=== PATIENT | male | born 1935 | race Caucasian/White ===

== ENCOUNTER 2018-09-11 12:30 | Inpatient (IN) | payer MEDICARE, BC ==
[2018-09-11] MEDS ORDERED: NS 0.9% 1000 ML** 1,000 ML IV ONE ×2 (13:05→16:12)
--- OUTSIDE RECORDS SUMMARY | 2018-09-11 13:09 | XMS REPORT | Continuity of Care Document ---
:1935 External Reference #:[id number] Author Name Chaitanya Desai MD Address [address] [facility] [place] [address] Care Team Providers Name Role Phone Chaitanya Desai MD Care Team Information Dupligraph Operator Unavailable Chaitanya Desai MD Primary Care Physician Unavailable Payers Date Identification Numbers Payment Provider Subscriber Effective: 2004 Policy Number: [id number] Medicare [place] Deniz Ellsworth JR PayID: [id number] [address] [place] [address] Effective: 2016 Policy Number: Out Of Area [facility] Deniz Ellsworth JR [id number] Group Number: [id number] [address] [address] Group Name: [facility] Supp Plan J ESTEE Zamorano [id number] PayID: [id number] Advance Directives Description No Information Available Problems Description No Information Family History Date Family Member(s) Observation Comments : (age 77 Years) Father due to Alcoholism : (age 96 Years) Mother due to Natural Causes : (age 81 Years) First Sister due to Alzheimer's His Twin Disease Social History Type Date Description Comments Sex Unknown Tobacco Use Start: Unknown Nonsmoker Smoking Status Reviewed: 09/11/18 Nonsmoker Allergies, Adverse Reactions, Alerts Date Description Reaction Status Severity Comments 03/26/2018 Drixoral Urticaria, Active Moderate 03/26/2018 NKDA Inactive Medications Medication Date Status Form Strength Qnty SIG Indications Ordering Provider Hospital Bed 09/11/ Active use for G20 Chaitanya William Semi Electric 2019 positioning Minna MD from supine Dx: parkinson's g20 Carbidopa-Lev / Active Tablets 25-250mg 360tab 1 by mouth Chaitanya William odopa 0000 s four times a Lloyd fisher MD Carbidopa-Lev / Active Tablets 50-200mg 90tabs 1 @ bedtime Chaitanya William odopa ER 0000 ER MD Lloyd Amantadine / Active Tablets 100mg 180tab take 1 tab by Chaitanya William HCL 0000 s mouth two Lloyd times daily MD Amlodipine / Active Tablets 5mg 90tabs 1 by mouth Chaitanya William Besylate 0000 every day MD Lloyd Vitamin B12 / Active Tablets 500mcg 1 by mouth Unknown 0000 ER every day Tylenol 200MG / Active 1-2 as needed Unknown 0000 Immunizations CPT Code Status Date Vaccine Lot # [id number] Given 04/19/2018 High-Dose, Influenza Virus Vacccine-fluzone 65 and [id number] older Vital Signs Date Vital Result Comment 09/11/2018 11:11am BP Systolic 148 mmHg BP Diastolic 70 mmHg Heart Rate 92 /min Body Temperature 101.1 F Respiratory Rate 16 /min Weight 160.00 lb 07/21/2018 1:09pm BP Systolic 130 mmHg BP Diastolic 68 mmHg Heart Rate 70 /min Respiratory Rate 16 /min 06/17/2018 10:13am BP Systolic 142 mmHg BP Diastolic 80 mmHg Heart Rate 78 /min Body Temperature 98.6 F Height 68 inches 5'8" Weight 163.00 lb BMI (Body Mass Index) 24.8 kg/m2 05/12/2018 1:39pm BP Systolic 140 mmHg BP Diastolic 70 mmHg Heart Rate 78 /min Body Temperature 97.9 F Respiratory Rate 18 /min Weight 163.50 lb 03/26/2018 1:42pm BP Systolic 114 mmHg BP Diastolic 64 mmHg Heart Rate 66 /min Body Temperature 98.6 F Height 68 inches 5'8" Weight 159.00 lb BMI (Body Mass Index) 24.2 kg/m2 Results Description No Information Available Procedures Date Code Description Status 06/17/2018 46412 Remove Impacted Cerumen Completed 03/26/2018 37022180 Colonoscopy Completed Encounters Type Date Location Provider Dx Diagnosis Office Visit 07/21/2018 [facility] Office Chaitanya William G20 Parkinson's disease 1:20p MD Lloyd I10 Essential (primary) hypertension Office Visit 06/17/2018 10:10a [facility] Office Chaitanya Shirley H61.22 Impacted Valentina [place], left ear Office Visit 05/12/2018 1:40p [facility] Office Chaitanya William R60.0 Localized edema MD Lloyd G20 Parkinson's disease Office Visit 03/26/2018 2:00p Main Office Chaitanya William G2Aliya Parkinson's disease MD Lloyd I10 Essential (primary) hypertension Plan of Treatment Future Appointment(s):10/22/2018 12:50 pm - Chaitanya Desai MD at Main [id number]/11/2018 - Chaitanya Desai MDK29.01 Acute gastritis with [id number] Parkinson's diseaseNew Medication:Hospital Bed Semi Electric - use for positioning and rising from supine Dx: parkinson's [id number]:~B_~U_ Medication Management~b_~u_ Patient Understands medications he's taking? Yes No Are there Barriers to Adherence? Yes No Has the patient been asked about herbal supplements and therapies, and OTC meds? Yes No
[2018-09-11] MEDS ORDERED: Ondansetron INJ* 2 MG/ML VIAL IV ONE (13:25)
--- NOTE | 2018-09-11 13:39 | ED ---
Abdominal Pain/Male - HPI Summary HPI Summary: Patient is an 83-year-old male who presents emergency department for coffee ground emesis, diffuse abdominal pain and distention 2 days. Patient has a history of Parkinson's disease and resides with his daughter who is present. She states he started feeling unwell several days ago which then progressed to vomiting last night which continued today. He was seen by PCP and office today who did a rectal exam and found occult blood. Patient also was noted to have a low-grade fever at PCP. Patient denies chest pain, shortness of breath, cough, urinary symptoms. He does note constipation over the last few days. Denies abdominal surgeries or history of gastric ulcers. Symptoms are moderate in severity. No current modifying factors. - History of Current Complaint Chief Complaint: EDGIBleed Stated Complaint: ABD PAIN Time Seen by Provider: 09/11/18 13:05 Hx Obtained From: Patient Pain Intensity: 7 - Allergies/Home Medications Allergies/Adverse Reactions: Allergies Allergy/AdvReac Type Severity Reaction Status Date / Time brompheniramine Allergy See Comment Verified 09/11/18 12:42 [From Drixoral] dexbrompheniramine Allergy See Comment Verified 09/11/18 12:42 [From Drixoral] pseudoephedrine Allergy See Comment Verified 09/11/18 12:42 [From Drixoral] Home Medications: Home Medications Amantadine CAP* [Symmetrel CAP*] 100 mg PO DAILY 09/11/18 [History Confirmed ] Carbidopa/Levodop CR 50/200(*) [Sinemet CR 50/200(*)] 1 tab PO DAILY 09/11/18 [ History Confirmed 09/11/18] Carbidopa/Levodopa [Carbidopa-Levodopa 25-250 Tab] 1 each PO TID 09/11/18 [ History Confirmed 09/11/18] Cyanocobalamin TAB* [Vitamin B12 TAB*] 500 mcg PO DAILY 09/11/18 [History Confirmed 09/11/18] Ibuprofen TAB* [Motrin TAB* 400 MG] 400 mg PO Q6H PRN 09/11/18 [History Confirmed 09/11/18] amLODIPine TAB* [Norvasc 5 mg TAB*] 5 mg PO DAILY 09/11/18 [History Confirmed ] PMH/Surg Hx/FS Hx/Imm Hx Previously Healthy: Yes Infectious Disease History: No Infectious Disease History: Denies: Traveled Outside the [place] in Last 30 Days - Family History Known Family History: Positive: Non-Contributory - Social History Occupation: Retired Lives: With Family Alcohol Use: None Substance Use Type: Reports: None Smoking Status (MU): Never Smoked Tobacco Review of Systems Positive: Fever Eyes: Negative ENT: Negative Cardiovascular: Negative Negative: Chest Pain Negative: Shortness Of Breath Positive: Abdominal Pain, Vomiting, Nausea. Negative: Diarrhea Genitourinary: Negative Musculoskeletal: Negative Skin: Negative Neurological: Negative All Other Systems Reviewed And Are Negative: Yes Physical Exam Triage Information Reviewed: Yes Vital Signs On Initial Exam: Initial Vitals Temp Pulse Resp BP Pulse Ox 100.1 F 98 18 142/78 93 09/11/18 12:38 09/11/18 12:38 09/11/18 12:38 09/11/18 12:38 09/11/18 12:38 Vital Signs Reviewed: Yes Appearance: Positive: Pain Distress - Pt. sitting up in bed, appears uncomfortable but nontoxic. Daughter present. Skin: Positive: Warm, Dry Head/Face: Positive: Normal Head/Face Inspection Eyes: Positive: Normal, EOMI Neck: Positive: Supple. Negative: Nuchal Rigidity Respiratory/Lung Sounds: Positive: Clear to Auscultation, Breath Sounds Present Cardiovascular: Positive: Normal, RRR Abdomen Description: Positive: Other: - Distended with mild diffuse tenderness. Hypoactive bowel sounds. Musculoskeletal: Negative: Edema Left, Edema Right Neurological: Positive: Normal, CN Intact II-III Psychiatric: Positive: Affect/Mood Appropriate Diagnostics - Vital Signs Vital Signs Temp Pulse Resp BP Pulse Ox 09/11/18 12:38 100.1 F 98 18 142/78 93 - Laboratory Result Diagrams: 09/11/18 13:22 09/11/18 13:22 Lab Statement: Any lab studies that have been ordered have been reviewed, and results considered in the medical decision making process. Abdominal Pain Male Course/Dx - Course Course Of Treatment: Patient presenting with abdominal distention, pain and vomiting. Rectal temperature 101.8F, heart rate mildly elevated in the high 90s. Oxygen saturation 93% room air which is low normal. On exam patient has no gross bleeding in stool is brown, stool is negative for occult blood. EKG done at 1332 shows a sinus rhythm of 94 bpm, normal axis, no ST elevation or depression. CXR negative for acute findings per radiology. U/A shows ketones but negative for infection. CBC shows a leukopenia of 3.3. CT scan is negative for acute findings per radiology. Unclear of orgin of fever. Negative flu swab at PCP today. Hospitalist consulted for admission. - Diagnoses Provider Diagnoses: Fever of unknown origin, Leukopenia Discharge - Sign-Out/Discharge Documenting (check all that apply): Patient Departure Patient Received Moderate/Deep Sedation with Procedure: No - Discharge Plan Condition: Improved Disposition: ADMITTED TO [facility] Referrals: Chaitanya Desai MD [Primary Care Provider] - - Billing Disposition and Condition Condition: IMPROVED Disposition: Admitted to [facility]
[2018-09-11 13:40] LABS: ABS Basophils 0 10^3/ul (0-0.2); ABS Eosinophils 0 10^3/ul (0-0.6); ABS Lymphocytes 0.3 10^3/ul (1.0-4.8); ABS Monocytes 0.6 10^3/ul (0-0.8); ABS Neutrophils 2.4 10^3/ul (1.5-7.7); ABS Nucleated RBC 0 10^3/ul; Eosinophil % 0 %; Hematocrit 44 % (42-52); Hemoglobin 14.7 g/dl (14.0-18.0); Lymphocyte % 8.5 %; Mean Corpuscular HGB Conc 34 g/dl (31-36); Mean Corpuscular Hemoglobin 32 pg (27-31); Mean Corpuscular Volume 95 fL (80-94); Mean Platelet Volume 8.4 fL (7.4-10.4); Nucleated Red Blood Cells % 0.1; Platelet Count 155 10^3/ul (150-450); Red Blood Count 4.62 10^6/ul (4.00-5.40); Red Cell Distribution Width 13 % (10.5-15); White Blood Count 3.3 10^3/ul (3.5-10.8)
[2018-09-11 13:57] LABS: Activated Partial Thrombo Time 28.4 seconds (26.0-36.3); INR 1.06 (0.77-1.02)
[2018-09-11 14:02] LABS: Albumin 3.8 g/dL (3.2-5.2); Albumin/Globulin Ratio 1.6 (1-3); BUN/Creatinine Ratio 33.9 (8-20); Calcium 8.7 mg/dL (8.6-10.3); EGFR African American 75.9 (>60); EGFR Non-African American 62.8 (>60); Globulin 2.4 g/dL (2-4); Potassium 4.3 mmol/L (3.5-5.0); Total Bilirubin 1.7 mg/dL (0.2-1.0); Total Protein 6.2 g/dL (6.4-8.9)
[2018-09-11 15:43] LABS: Troponin I 0.01 ng/mL (<0.04)
[2018-09-11 16:19] LABS: Urine Appearance Cloudy; Urine Bilirubin Negative (Negative); Urine Blood Negative (Negative); Urine Color Yellow; Urine Glucose Negative (Negative); Urine Ketones 1+ (Negative); Urine Nitrite Negative (Negative); Urine Protein Negative (Negative); Urine Specific Gravity 1.024 (1.010-1.030); Urine Urobilinogen Negative (Negative)
[2018-09-11 16:37] LABS: C Reactive Protein 69.8 mg/L (<8.01)
[2018-09-11] MEDS ORDERED: Acetaminophen TAB* 325 MG PO PRN (17:30)
[2018-09-11] MEDS ORDERED: Ondansetron INJ* 2 MG/ML VIAL IV PRN (17:30)
[2018-09-11] MEDS ORDERED: Piperacillin/Tazobac ADVAN(*) 3.375 GM in NS 0.9% 100 ML* 100 ML IVPB ONE (17:48)
[2018-09-11] MEDS ORDERED: Senna TAB PO PRN (17:50)
[2018-09-11] MEDS ORDERED: Zosyn per Pharmacy* NOTE FOLLOW UP SCH (18:00)
--- NOTE | 2018-09-11 19:41 | HP ---
CC: Dr. Chaitanya Desai * ADMISSION HISTORY AND PHYSICAL: DATE OF ADMISSION: 09/11/18 PRIMARY CARE PROVIDER: Dr. Chaitanya Desai. MY ATTENDING WHILE IN THE HOSPITAL: Dr. Dereck Pelayo.* (DICTATED BY NIKHIL ROTHMAN) CHIEF COMPLAINT: Abdominal pain, nausea, vomiting. HISTORY OF PRESENT ILLNESS: Mr. Ellsworth is an 83-year-old male with past medical history significant for Parkinson disease and prostate cancer, status post resection, who presents to the emergency department after on Saturday he started with sudden onset abdominal distention, increased belching and abdominal pain, which was relieved somewhat with Gas-X, but was accompanied by significant reflux. The patient then improved, was able to tolerate a bland diet , but was unable to tolerate his Parkinson meds. The patient then began throwing up at approximately 10 p.m. on 09/10/18 with significantly associated nausea and abdominal pain. The patient had coffee-ground emesis, but no blood. The patient has not had a bowel movement since Saturday, but has been passing gas. The patient this morning vomited again and went to his primary care doctor and was found to have occult blood in his stool. The patient's most recent colonoscopy was in 1995 and looked normal. The patient had an endoscopy in 2009, which had no issues. The patient in the emergency department was found to be tachycardic and febrile. The patient was given fluids and Zofran and was able to tolerate oral liquids. The patient has never had an episode like this before. The patient has never had abdominal surgery. The patient describes the pain as severe, intermittent and aching in the center of his abdomen. The patient feels intermittently as if he has to have a bowel movement. The patient has not been drinking very much and his urine has become very dark colored. The patient has no pain with urination. The patient has not been losing weight recently, in fact the patient has been gaining weight due to improved nutrition from living with his daughter instead of living by himself. The patient has not been able to have consistent dosing of his Parkinson medications for several days and is feeling very weak and tremulous with regard to this. Due to the concern for fevers, tachycardia and abdominal pain, we are asked to evaluate the patient for admission in the hospital. PAST MEDICAL HISTORY: Parkinson disease, prostate cancer, hypertension. PAST SURGICAL HISTORY: Prostate resection, carpal tunnel release, right rotator cuff repair, multiple trigger finger releases. MEDICATIONS: 1. Amlodipine 5 mg p.o. daily. 2. Carbidopa/levodopa 5/250 one tab p.o. t.i.d. 3. Carbidopa/levodopa ER 50/200 one tab p.o. nightly. 4. Amantadine 100 mg p.o. b.i.d. 5. Vitamin B12 500 mcg p.o. daily. 6. Ibuprofen as needed. ALLERGIES: BROMPHENIRAMINE, DEXBROMPHENIRAMINE, PSEUDOEPHEDRINE. FAMILY HISTORY: The patient's father of cirrhosis due to alcoholism. The patient's mother of old age at age 97. The patient has a sister who of complications of Alzheimer's and a sister who has mild dementia, but is otherwise well. SOCIAL HISTORY: The patient has never smoked, drank, or used illicit drugs. 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 The patient is and has 1 child. The patient's also has Parkinson's disease and lives with him. The patient 's surrogate decision maker will be his daughter, Yanelis Burns. REVIEW OF SYSTEMS: A 14-point review of systems was reviewed and is negative except as above in the HPI. PHYSICAL EXAMINATION GENERAL: The patient is an 83-year-old male with mask-like facies, who appears stated age and sitting comfortably in the bed, in no acute distress. HEENT: Head: Normocephalic, atraumatic. Sclerae anicteric. No conjunctival injection. Nasal mucosa moist. Oral mucosa moist. No pharyngeal erythema, discharge, or exudate. NECK: Supple, nontender. No lymphadenopathy. No carotid bruits auscultated. No JVD. RESPIRATORY: Clear to auscultation bilaterally. No wheezes, rales, or rhonchi. Good air exchange bilaterally. CARDIAC: Regular rate and rhythm. No clicks, murmurs, gallops, or rubs. Pulses are 2+ in the bilateral dorsalis pedis, posterior tibialis, and radial areas. ABDOMEN: Soft, tender to palpation in the middle of the stomach without rebound or guarding. No hepatosplenomegaly. No abdominal bruits auscultated. Normoactive bowel sounds. GENITOURINARY: No suprapubic or CVA tenderness. NEURO: Cranial nerves II through XII intact. No focal deficits. Alert and oriented x3. Slight tremor, bradykinesia. PSYCHIATRIC: Pleasant and cooperative. SKIN: Clean, dry, and intact. No rash. DIAGNOSTIC STUDIES/LAB DATA: White blood cell count 3.3, hemoglobin 14.7, platelet count 155. INR 1.06, APTT 28.4. Sodium 136, potassium 4.3, chloride 104, carbon dioxide 24, anion gap 8, BUN 38, creatinine 1.12, glucose 120, calcium 8.7. Bilirubin 1.7, AST 25, ALT 20, alkaline phosphatase 81. Troponin I 0.01. CRP 69.0. Protein 6.2, albumin 3.9, globulin 2.4. Urine shows 1+ ketones, cloudy, negative, otherwise benign. Studies: Chest x-ray read as no active cardiopulmonary disease. Electrocardiogram read as normal sinus rhythm, normal axis, rate of 94, QTc of 414. No hypertrophy or enlargement. Normal R-wave progression. No PACs. No other significant abnormalities. None for comparison. Abdomen and pelvis CT from 09/11/18 read as atherosclerosis, diverticulosis, cholelithiasis. No acute pathology in the visualized abdomen or pelvis. There is large amount of stool noted in the colon. ASSESSMENT AND PLAN/IMPRESSION: Mr. Ellsworth is an 83-year-old male with past medical history significant for Parkinson disease and prostate cancer, who presents to the emergency department with 3 days of intermittent abdominal pain , distention with nausea and vomiting. The patient is febrile and will be admitted to the hospital for empiric antibiotics and close monitoring. 1. Abdominal pain, distention. The differential for the patient's abdominal pain, fever and diarrhea includes viral gastroenteritis, early diverticulitis not picked up on CT scan or other infectious etiology coupled with constipation. The patient will be admitted to the hospital, given fluids for his dehydration. The patient will have a soft diet to allow him to take his Parkinson medications with antiemetics as needed. The patient will have Zosyn for antibiotics. The patient received 1 L of fluids in the emergency department and will receive them ongoing at 100 mL an hour. The patient had good relief with Zofran, this will be continued. The patient will have laxatives with senna and docusate and be monitored for bowel movements and possible resolution of his symptoms. The patient has not had evidence of bowel obstruction on his exam nor his abdominal pain, though he will be monitored closely for signs of decompensation. Lactic acid is pending at this time. 2. Parkinson's disease. The patient has not been able to take his Parkinson medications for several days. We will continue the patient's home Parkinson regimen with Zofran and a soft diet in order help make it more palatable. 3. Hypertension. The patient is currently normotensive. Continue the patient' s amlodipine. 4. DVT prophylaxis: The patient is a moderate risk. The patient will have heparin subcu. 5. Code status: The patient would like to be a DNR. The patient does not have the original copy of his DNR with him. 6. FEN: The patient will have fluids and a soft diet as above. 7. Disposition: The patient is admitted inpatient in the hospital. Estimated length of stay 2 to 3 days. TIME SPENT: Approximately 60 minutes was spent on the admission of this patient , 30 of which was spent [id number] with the patient obtaining history and physical and discussing treatment plan. Plan was discussed with my attending, Dr. Dereck Pelayo, and he is in agreement. NIKHIL ROTHMAN [id number]/[facility] #: [id number] MARIA ANTONIA
[2018-09-11] MEDS: NS 0.9% 1000 ML** 1,000 ML IV SCH (20:13)
[2018-09-11] MEDS: Docusate CAP* 100 MG PO SCH (22:07)
[2018-09-11] MEDS: Heparin VIAL(*) 5000 UNITS/ML VIAL (FIVE THOUSAND) SUBCUT SCH (22:12)
[2018-09-11] MEDS: Carbidopa/Levodop 25/250MG TAB(*) PO SCH (22:49)
[2018-09-11] MEDS: ZOSYN 3.375 GM Q8H per EXTENDED INFUSION IVPB SCH ×2 (22:51)
[2018-09-12] MEDS: Heparin VIAL(*) 5000 UNITS/ML VIAL (FIVE THOUSAND) SUBCUT SCH ×3 (06:03→21:59)
[2018-09-12] MEDS: ZOSYN 3.375 GM Q8H per EXTENDED INFUSION IVPB SCH ×6 (06:04→22:00)
[2018-09-12 07:32] LABS: Hematocrit 39 % (42-52); Hemoglobin 12.7 g/dl (14.0-18.0); Mean Corpuscular HGB Conc 33 g/dl (31-36); Mean Corpuscular Hemoglobin 31 pg (27-31); Mean Corpuscular Volume 96 fL (80-94); Mean Platelet Volume 8.1 fL (7.4-10.4); Platelet Count 136 10^3/ul (150-450); Red Blood Count 4.06 10^6/ul (4.00-5.40); Red Cell Distribution Width 13 % (10.5-15); White Blood Count 3.3 10^3/ul (3.5-10.8)
[2018-09-12 07:49] LABS: Albumin/Globulin Ratio 1.4 (1-3); BUN/Creatinine Ratio 26.7 (8-20); Calcium 7.8 mg/dL (8.6-10.3); EGFR African American 81.8 (>60); EGFR Non-African American 67.6 (>60); Globulin 2.1 g/dL (2-4); Magnesium 1.5 mg/dL (1.9-2.7); Potassium 3.9 mmol/L (3.5-5.0); Total Bilirubin 1.1 mg/dL (0.2-1.0); Total Protein 5.1 g/dL (6.4-8.9)
[2018-09-12] MEDS ORDERED: Magnesium Sulf 4 GM/100 ML IV* 4,000 MG/100 ML BAG IVPB ONE (08:25)
[2018-09-12] MEDS ORDERED: Calcium Gluconate INJ* 1 GM in NS 0.9% 50 ML* 50 ML IVPB ONE (08:25)
[2018-09-12 08:32] LABS: ABS Basophils 0 10^3/ul (0-0.2); ABS Eosinophils 0.1 10^3/ul (0-0.6); ABS Lymphocytes 0.6 10^3/ul (1.0-4.8); ABS Monocytes 0.8 10^3/ul (0-0.8); ABS Neutrophils 1.8 10^3/ul (1.5-7.7)
[2018-09-12 08:35] LABS: Lymphocytes % 24 %; Monocytes % 13 %; Neutrophil % 56 %; Variant Lymph % 4 % (0-6)
[2018-09-12 08:36] LABS: ABS Neutrophils 1.8 10^3/ul (1.5-7.7)
[2018-09-12 08:37] LABS: ABS Eosinophils 0.1 10^3/ul (0-0.6)
[2018-09-12] MEDS ORDERED: Amantadine CAP* 100 MG PO SCH (09:00)
[2018-09-12] MEDS: amLODIPine TAB* 5 MG PO SCH (09:00)
[2018-09-12] MEDS ORDERED: Carbidopa/Levodop CR 50/200(*) TAB.CR PO SCH (09:00)
[2018-09-12] MEDS: Cyanocobalamin TAB* 500 MCG PO SCH (10:10)
[2018-09-12] MEDS: Docusate CAP* 100 MG PO SCH ×2 (10:10→22:00)
[2018-09-12] MEDS: Carbidopa/Levodop 25/250MG TAB(*) PO SCH ×3 (11:51→21:59)
--- NOTE | 2018-09-12 13:39 | PN ---
Subjective Date of Service: 09/12/18 Interval History: Pt seen and examined. Meds and labs reviewed. CC: Pain under left breast area that improves w/movement and worsens w/drinking liquids. ROS: Denied MALDONADO/dizziness, F/C, N/V, CP, SOB, increased cough, sputum production , abd pain, diarrhea, constipation, dysuria, myalgias, arthralgias, throat pain , and new skin lesions. The rest of the 14 point ROS are unremarkable. PHYSICAL EXAM: GEN APPEARANCE: Awake, not in acute distress, Ox3 HEENT: NC/AT, PERRLA, moist oral mucosa, (-) throat erythema NECK: Soft, supple, (-) cervical LAD, (-)JVD HEART: S1S2 WNL, RRR, No MRG CHEST: CTA, BL, GAE, No W/R/R ABD: Soft, ND/NT, NABS 4x Q EXT: No C/C/E SKIN: Warm to touch PSYCH: No active psychosis, hallucinations, depression, SI/HI Objective Active Medications: Acetaminophen (Tylenol Tab*) 650 mg PO Q6H PRN PRN Reason: FEVER/PAIN Amantadine HCl (Symmetrel Cap*) 100 mg PO DAILY [facility] Last Admin: 09/12/18 10:11 Dose: 100 mg Amlodipine Besylate (Norvasc Tab*) 5 mg PO DAILY [facility] Last Admin: 09/12/18 09:00 Dose: Not Given Carbidopa/Levodopa (Sinemet 25/250 Tab(*)) 1 tab PO 1200,1700,2200 KAYLA Last Admin: 09/12/18 11:51 Dose: 1 tab Carbidopa/Levodopa (Sinemet Cr 50/200(*)) 1 tab.cr PO DAILY [facility] Last Admin: 09/12/18 10:11 Dose: 1 tab.cr Cyanocobalamin (Vitamin B12 Tab*) 500 mcg PO DAILY [facility] Last Admin: 09/12/18 10:10 Dose: 500 mcg Docusate Sodium (Colace Cap*) 200 mg PO BID [facility] Last Admin: 09/12/18 10:10 Dose: 200 mg Heparin Sodium (Porcine) (Heparin Vial(*)) 5,000 units SUBCUT Q12H [facility] Last Admin: 09/12/18 10:12 Dose: 5,000 units Sodium Chloride (Ns 0.9% 1000 Ml) 1,000 mls @ 100 mls/hr IV PER RATE [facility] Last Admin: 09/11/18 20:13 Dose: 100 mls/hr Piperacillin Sod/Tazobactam (Sod 3.375 gm/ Sodium Chloride) 100 mls @ 25 mls/ hr IVPB Q8H [facility] Last Admin: 09/12/18 06:04 Dose: 25 mls/hr Ondansetron HCl (Zofran Inj*) 4 mg IV Q6H PRN PRN Reason: NAUSEA Pharmacy Consult (Zosyn Per Pharmacy*) 1 note FOLLOW UP .ZOSYN PER PHARMACY [facility] Senna (Senokot Tab*) 1 tab PO DAILY PRN PRN Reason: CONSTIPATION Vital Signs - 8 hr 09/12/18 09/12/18 09/12/18 06:09 08:00 11:41 Temperature 98.4 F 97.5 F Pulse Rate 66 68 Respiratory 16 16 18 Rate Blood Pressure 102/54 115/58 (mmHg) O2 Sat by Pulse 92 95 Oximetry Oxygen Devices in Use Now: None Result Diagrams: 09/12/18 07:18 09/12/18 07:18 Microbiology and Other Data: Microbiology 09/11/18 13:45 Stool Occult Blood (CARLITOS) - Final Stool Assess/Plan/Problems-Billing Assessment: - Patient Problems (1) Chest pain Current Visit: Yes Status: Acute Code(s): R07.9 - CHEST PAIN, UNSPECIFIED SNOMED Code(s): 37120956 Comment: -Left sided; located in the apex; likely musculoskeletal vs GERD on description and unlikely cardiac -Continue to trend troponins (2) AGE (acute gastroenteritis) Current Visit: Yes Status: Acute Code(s): K52.9 - NONINFECTIVE GASTROENTERITIS AND COLITIS, UNSPECIFIED SNOMED Code(s): 43041152 Comment: -Continue Zosyn for now although chances of enteroinvasive organisms is low with absence of occult blood -If rest of cultures remain negative along with clinical improvement in 1-2 days , consider D/C Zosyn -Continue IVF support (3) Parkinson disease Current Visit: Yes Status: Acute Code(s): G20 - PARKINSON'S DISEASE SNOMED Code(s): 60020851 Comment: -Continue Carbidopa/Levodopa (4) HTN (hypertension) Current Visit: Yes Status: Acute Code(s): I10 - ESSENTIAL (PRIMARY) HYPERTENSION SNOMED Code(s): 47091954 Comment: -Well-controlled -Continue Amlodipine (5) DVT prophylaxis Current Visit: Yes Status: Acute Code(s): BQP7001 - SNOMED Code(s): 841071600 Comment: -Changed Heparin SQ to q12H Status and Disposition: -Appreciate PT input; continue PT and reassessment of needs
[2018-09-12] MEDS: NS 0.9% 1000 ML** 1,000 ML IV SCH ×2 (14:46→16:51)
[2018-09-12] MEDS ORDERED: Nitroglycerin TAB 0.4 MG* 0.4 MG TAB SL PRN (15:09)
[2018-09-12 16:00] LABS: CKMB ng/mL 7.4 ng/mL (0.6-6.3)
[2018-09-12] MEDS: Amantadine CAP* 100 MG PO SCH (16:52)
[2018-09-12] MEDS: Aspirin EC TAB* 325 MG PO SCH (16:52)
--- NOTE | 2018-09-12 18:34 | ECHO ---
Patient: CHERYL KENNEDY [facility] Rec#: [id number] : 1935 Date: 09/12/2018 Age: 83y Height: 175 cm / 68.9 in Weight: 78 kg / 171.9 lbs Sex: M BSA: 1.94 Room#: [facility] Admit Date#: 09/11/2018 Type: Inpatient Referring: Vic Alvarado Reading: Daisy Licea MD Pharmacy Clinical Coordinator: Fior Asher RDCS CC: Chaitanya Bond Transthoracic Echocardiogram Indication: CP//Sepsis BP: 115/58 HR: 64 Rhythm: NSR Findings History: Parkinson's,prostate cancer,HTN. Technical Comments: The study quality is good. This is a limited study for wall motion. Completed at 1806. Left Ventricle: The estimated ejection fraction is 50-55%. Conclusions Limited study. Grossly normal left ventricular wall motion and contractility, visually estimated EF 55 %. Mildly D shaped LV at the base on short axis view. Right ventricle shows normal contractility at the base on parasternal and 4 chamber views, apex appears relatively hypokinetic on apicla views. Pericardium appears normal. Trileaflet aortic valve, mildly sclerotic with normal excursion. Mitral valve leaflets mildly sclerotic with a mild decrease in excursion. Tricuspid valve leaflets with normal excursion. No prior study to compare.
[2018-09-12] MEDS: Carbidopa/Levodop CR 50/200(*) TAB.CR PO SCH (22:00)
[2018-09-13] MEDS: NS 0.9% 1000 ML** 1,000 ML IV SCH ×2 (03:05→13:30)
[2018-09-13] MEDS: ZOSYN 3.375 GM Q8H per EXTENDED INFUSION IVPB SCH ×6 (05:58→21:56)
[2018-09-13 07:16] LABS: Hematocrit 37 % (42-52); Hemoglobin 12.4 g/dl (14.0-18.0); Mean Corpuscular HGB Conc 34 g/dl (31-36); Mean Corpuscular Hemoglobin 32 pg (27-31); Mean Corpuscular Volume 94 fL (80-94); Mean Platelet Volume 8.5 fL (7.4-10.4); Platelet Count 137 10^3/ul (150-450); Red Blood Count 3.88 10^6/ul (4.00-5.40); Red Cell Distribution Width 13 % (10.5-15); White Blood Count 3.1 10^3/ul (3.5-10.8)
[2018-09-13 07:29] LABS: Albumin/Globulin Ratio 1.5 (1-3); BUN/Creatinine Ratio 21.5 (8-20); EGFR African American 94.1 (>60); EGFR Non-African American 77.8 (>60); Phosphorus 2.5 mg/dL (2.5-5.0); Potassium 3.8 mmol/L (3.5-5.0); Total Bilirubin 0.7 mg/dL (0.2-1.0)
[2018-09-13 08:37] LABS: Troponin I 0.22 ng/mL (<0.04)
[2018-09-13] MEDS: Aspirin EC TAB* 325 MG PO SCH (08:53)
[2018-09-13] MEDS: Cyanocobalamin TAB* 500 MCG PO SCH (08:53)
[2018-09-13] MEDS: Amantadine CAP* 100 MG PO SCH ×2 (08:53→16:52)
[2018-09-13] MEDS: Heparin VIAL(*) 5000 UNITS/ML VIAL (FIVE THOUSAND) SUBCUT SCH ×2 (08:54→21:46)
[2018-09-13] MEDS: amLODIPine TAB* 5 MG PO SCH (08:54)
[2018-09-13] MEDS: Docusate CAP* 100 MG PO SCH ×2 (08:54→21:45)
[2018-09-13] MEDS: Carbidopa/Levodop 25/250MG TAB(*) PO SCH ×4 (08:56→21:45)
[2018-09-13] MEDS ORDERED: Aspirin TAB* 325 MG PO SCH (13:00)
[2018-09-13] MEDS: Atorvastatin* 80 MG TAB PO SCH (13:36)
--- NOTE | 2018-09-13 14:43 | CONSULT ---
Subjective Date of Service: 09/13/18 - CC: nausea, vomiting, distention of abdoman, gas. Elevated troponins. Interval History: 83 yo with no past cardiac history. PMHx HTN, PKSNs Stable health, had dinner then developed gas/distension. 1AM awoke to pee, N/V , this occured again 3 AM, then severe SS irritation lying down, Tums did not help and had to sit up. He did not wake up his family, let them know 6:30 AM when they awoke. Able to eat now. Denies GI or chest discomfort now. Denies any changes in medications prior to the event. Family History: Unchanged from Admission - Father of alchol, mother 97 yo, 2 sisters one a twin, no cardiac history. Social History: Unchanged from Admission - Retired from working with [employer], exposure to Asbestous and Berylium. Non smoker, no EtOH abuse. No recreation drug abuse. Widowede, lives with daughter and ZAIRE. Past Medical History: Unchanged from Admission - HTN, Parkinsons, uses a cane. Medications Active Medications: Acetaminophen (Tylenol Tab*) 650 mg PO Q6H PRN PRN Reason: FEVER/PAIN Amantadine HCl (Symmetrel Cap*) 100 mg PO 1700 [facility] Last Admin: 09/12/18 16:52 Dose: 100 mg Amantadine HCl (Symmetrel Cap*) 100 mg PO QAM [facility] Last Admin: 09/13/18 08:53 Dose: 100 mg Amlodipine Besylate (Norvasc Tab*) 5 mg PO DAILY [facility] Last Admin: 09/13/18 08:54 Dose: 5 mg Aspirin (Aspirin Tab*) 325 mg PO DAILY [facility] Last Admin: 09/13/18 13:36 Dose: 325 mg Atorvastatin Calcium (Lipitor*) 80 mg PO DAILY [facility] Last Admin: 09/13/18 13:36 Dose: 80 mg Carbidopa/Levodopa (Sinemet 25/250 Tab(*)) 1 tab PO QID [facility] Last Admin: 09/13/18 13:36 Dose: 1 tab Carbidopa/Levodopa (Sinemet Cr 50/200(*)) 1 tab.cr PO BEDTIME [facility] Last Admin: 09/12/18 22:00 Dose: 1 tab.cr Cyanocobalamin (Vitamin B12 Tab*) 500 mcg PO DAILY [facility] Last Admin: 09/13/18 08:53 Dose: 500 mcg Docusate Sodium (Colace Cap*) 200 mg PO BID [facility] Last Admin: 09/13/18 08:54 Dose: 200 mg Heparin Sodium (Porcine) (Heparin Vial(*)) 5,000 units SUBCUT Q12H [facility] Last Admin: 09/13/18 08:54 Dose: 5,000 units Sodium Chloride (Ns 0.9% 1000 Ml) 1,000 mls @ 100 mls/hr IV PER RATE [facility] Last Admin: 09/13/18 13:30 Dose: 100 mls/hr Piperacillin Sod/Tazobactam (Sod 3.375 gm/ Sodium Chloride) 100 mls @ 25 mls/ hr IVPB Q8H [facility] Last Admin: 09/13/18 13:36 Dose: 25 mls/hr Nitroglycerin (Nitroglycerin Tab 0.4 Mg*) 0.4 mg SL Q5M PRN PRN Reason: ANGINA Ondansetron HCl (Zofran Inj*) 4 mg IV Q6H PRN PRN Reason: NAUSEA Senna (Senokot Tab*) 1 tab PO DAILY PRN PRN Reason: CONSTIPATION Home Medications: Amantadine CAP* [Symmetrel CAP*] 100 mg PO DAILY 09/11/18 [History Confirmed ] Carbidopa/Levodop CR 50/200(*) [Sinemet CR 50/200(*)] 1 tab PO DAILY 09/11/18 [ History Confirmed 09/11/18] Carbidopa/Levodopa [Carbidopa-Levodopa 25-250 Tab] 1 each PO TID 09/11/18 [ History Confirmed 09/11/18] Cyanocobalamin TAB* [Vitamin B12 TAB*] 500 mcg PO DAILY 09/11/18 [History Confirmed 09/11/18] Ibuprofen TAB* [Motrin TAB* 400 MG] 400 mg PO Q6H PRN 09/11/18 [History Confirmed 09/11/18] amLODIPine TAB* [Norvasc 5 mg TAB*] 5 mg PO DAILY 09/11/18 [History Confirmed ] Review of Systems - Measurements Intake and Output: Intake and Output Last 24 Hours 09/11/18 09/12/18 09/13/18 09/14/18 04:59 04:59 04:59 04:59 Intake Total 6458 2244 2930 Output Total 950 1550 175 Balance 6299 334 9429 Weight 171 lb 6.4 oz Intake: IV Fluids 2714 1551 1978 NS (0.9%) 015 588 1666 calcium 100 magnesium 1059 IVPB 84 123 111 ABX - ZOSYN 84 23 111 magnesium 100 Oral 720 840 Output: Urine 950 1550 175 Other: Estimated Void Large # Bowel Movements 0 # Voids 1 - Review of Systems General Comments: Positive for diaphoresis with the N/V, had orthopnea as well. Emisis dark. No recent fevers, chills sweats. No recent change in bowel or bladder habits. No exertional symptoms prior. Distant history of gas with certain foods. Review of Systems Statement: All other review of systems negative, unless stated above. Objective Vital Signs: T MAX: 101.8 Temp Pulse Resp BP Pulse Ox 97.0 F 58 16 108/60 92 09/13/18 12:37 09/13/18 12:37 09/13/18 12:37 09/13/18 12:37 09/13/18 12:37 Vital Signs 09/12/18 09/12/18 09/12/18 16:09 19:59 20:00 Temperature 98.0 F 98.2 F Pulse Rate 70 70 Respiratory 20 22 18 Rate Blood Pressure 104/61 122/68 (mmHg) O2 Sat by Pulse 93 93 Oximetry 09/12/18 09/13/18 09/13/18 22:53 02:44 08:00 Temperature 97.4 F 97.4 F Pulse Rate 60 63 Respiratory 18 18 16 Rate Blood Pressure 114/58 110/55 (mmHg) O2 Sat by Pulse 91 92 Oximetry 09/13/18 09/13/18 08:45 12:37 Temperature 97.9 F 97.0 F Pulse Rate 60 58 Respiratory 16 16 Rate Blood Pressure 124/66 108/60 (mmHg) O2 Sat by Pulse 93 92 Oximetry Oxygen Devices in Use Now: None Appearance: elderly gentleman lying 40 degrees in bed, appears comfortable. Eyes: No Scleral Icterus, PERRLA Ears/Nose/Mouth/Throat: Mucous Membranes Moist Neck: NL Appearance and Movements; NL JVP, No Thyroid Enlargement, Masses Respiratory: Symmetrical Chest Expansion and Respiratory Effort, Clear to Auscultation Cardiovascular: NL Sounds; No Murmurs; No JVD, RRR Abdominal: - - Distended, + bowel sounds, tympanetic c/w gas. Non tender. No gross hepatomegally. Extremities: No Edema, No Clubbing, Cyanosis Skin: No Rash or Ulcers Neurological: Alert and Oriented x 3 Laboratory Results: 09/13/18 06:22 09/13/18 06:22 INR (Anticoag Therapy) 1.06 (0.77-1.02) H 09/11/18 13:22 APTT 28.4 seconds (26.0-36.3) 09/11/18 13:22 Total Bilirubin 0.70 mg/dL (0.2-1.0) 09/13/18 06:22 AST 21 U/L (13-39) 09/13/18 06:22 ALT 6 U/L (7-52) L 09/13/18 06:22 Alkaline Phosphatase 66 U/L (34-104) 09/13/18 06:22 CK-MB (CK-2) 5.0 ng/mL (0.6-6.3) 09/13/18 06:22 Total Protein 5.0 g/dL (6.4-8.9) L 09/13/18 06:22 Albumin 3.0 g/dL (3.2-5.2) L 09/13/18 06:22 Globulin 2.0 g/dL (2-4) 09/13/18 06:22 Albumin/Globulin Ratio 1.5 (1-3) 09/13/18 06:22 09/11/18 09/12/18 09/12/18 13:22 14:13 19:28 Troponin I 0.01 0.30 H* 0.25 H* 09/13/18 09/13/18 06:22 13:39 Troponin I 0.22 H* 0.25 H* CRP 70. D dimer 238 (mildly elevated). Stool guiaic negative for heme. Diagnostic Imaging: CT abdomen: Reported as no acute abdominal findings, to my review prominent gas in gastrum and in intestine. Calcific plaquing noted descending aorta thorax and abdomen. 'tics noted. Echo: Limited, showed LVEF 55%, aortic and mitral sclerosis, RV apical hypokinesis. EKG Data: 09/11/18: NSR 94 bpm, ST depression laterally. 09/13/18: NSR 63 bpm, normal ST's Assessment/Plan 83 yo male with PMHx PKSNs, HTN presenting with acute onset n/v SS chest discomfort, diaphoresis with mild ST depression and mild elevation in troponins. CAD risks of HTN, lipid status unknown, labs pending. Calcific plaque seen in the aorta. RV apex hypokinetic on limited echo. Differential of NQMI vs. PE, history most consistent with cardiac ischemia. As the patient is currently stable, won't cath over the weekend and can't stress over the weekend. I will review with interventional cardiology. I recommend f/u on possible PE due elevated trops and RV findings (V/Q or CTA) as some activity limitation with PKSNs. I agree with empiric initiation of statin Lipator 80 mg/day. I would decrease ASA to 81 mg. BP and HR elevated on admission, well controlled now, continue amlodipine for now. With hx possible coffee ground emisis, negative stool guiaic and distended abdomen, consider NG tube to decompress, guiaic stomach contents. If intervention done we need to be sure no risk of GI bleeding, if upper problems Guiaics could be negative for a few days. HCT has decreased mildly since admission and hx NSAIDs on home med list. ID: Mild fever noted. Antibiotics for possible GI ID issue noted. No clear source of infection, evaluation and management to continue per hospitalists.
[2018-09-13] MEDS ORDERED: Iohexol 350* (CONTRAST) 500 ML MDV IV ONE (16:05)
--- NOTE | 2018-09-13 16:19 | PN ---
Subjective Date of Service: 09/13/18 Interval History: Pt seen and examined. Meds and labs reviewed. CC: CP has improved in comparison to yesterday, and not as frequent. At the time of my visit, he was CP free. ROS: Denied MALDONADO/dizziness, F/C, N/V, CP, SOB, increased cough, sputum production , abd pain, diarrhea, constipation, dysuria, myalgias, arthralgias, throat pain , and new skin lesions. The rest of the 14 point ROS are unremarkable. PHYSICAL EXAM: GEN APPEARANCE: Awake, not in acute distress HEENT: NC/AT, PERRLA, moist oral mucosa, (-) throat erythema NECK: Soft, supple, (-) cervical LAD, (-)JVD HEART: S1S2 WNL, RRR, No MRG CHEST: CTA, BL, GAE, No W/R/R ABD: Soft, ND/NT, NABS 4x Q EXT: No C/C/E SKIN: Warm to touch PSYCH: No active psychosis, hallucinations, depression, SI/HI Objective Active Medications: Acetaminophen (Tylenol Tab*) 650 mg PO Q6H PRN PRN Reason: FEVER/PAIN Acetylcysteine (Acetylcysteine Cap (Renal)*) 1,200 mg PO BID [facility] Stop: 09/15/18 09:01 Amantadine HCl (Symmetrel Cap*) 100 mg PO 1700 [facility] Last Admin: 09/12/18 16:52 Dose: 100 mg Amantadine HCl (Symmetrel Cap*) 100 mg PO QAM [facility] Last Admin: 09/13/18 08:53 Dose: 100 mg Amlodipine Besylate (Norvasc Tab*) 5 mg PO DAILY [facility] Last Admin: 09/13/18 08:54 Dose: 5 mg Aspirin (Aspirin 81 Mg Chew Tab*) 81 mg PO DAILY [facility] Atorvastatin Calcium (Lipitor*) 80 mg PO DAILY [facility] Last Admin: 09/13/18 13:36 Dose: 80 mg Carbidopa/Levodopa (Sinemet 25/250 Tab(*)) 1 tab PO QID [facility] Last Admin: 09/13/18 13:36 Dose: 1 tab Carbidopa/Levodopa (Sinemet Cr 50/200(*)) 1 tab.cr PO BEDTIME [facility] Last Admin: 09/12/18 22:00 Dose: 1 tab.cr Cyanocobalamin (Vitamin B12 Tab*) 500 mcg PO DAILY [facility] Last Admin: 09/13/18 08:53 Dose: 500 mcg Docusate Sodium (Colace Cap*) 200 mg PO BID [facility] Last Admin: 09/13/18 08:54 Dose: 200 mg Heparin Sodium (Porcine) (Heparin Vial(*)) 5,000 units SUBCUT Q12H [facility] Last Admin: 09/13/18 08:54 Dose: 5,000 units Sodium Chloride (Ns 0.9% 1000 Ml) 1,000 mls @ 100 mls/hr IV PER RATE [facility] Last Admin: 09/13/18 13:30 Dose: 100 mls/hr Piperacillin Sod/Tazobactam (Sod 3.375 gm/ Sodium Chloride) 100 mls @ 25 mls/ hr IVPB Q8H [facility] Last Admin: 09/13/18 13:36 Dose: 25 mls/hr Nitroglycerin (Nitroglycerin Tab 0.4 Mg*) 0.4 mg SL Q5M PRN PRN Reason: ANGINA Ondansetron HCl (Zofran Inj*) 4 mg IV Q6H PRN PRN Reason: NAUSEA Senna (Senokot Tab*) 1 tab PO DAILY PRN PRN Reason: CONSTIPATION Vital Signs - 8 hr 09/13/18 09/13/18 08:45 12:37 Temperature 97.9 F 97.0 F Pulse Rate 60 58 Respiratory 16 16 Rate Blood Pressure 124/66 108/60 (mmHg) O2 Sat by Pulse 93 92 Oximetry Oxygen Devices in Use Now: None Result Diagrams: 09/13/18 06:22 09/13/18 06:22 Microbiology and Other Data: Microbiology 09/11/18 13:45 Stool Occult Blood (CARLITOS) - Final Stool Assess/Plan/Problems-Billing Assessment: - Patient Problems (1) Elevated troponin Current Visit: Yes Status: Acute Code(s): R74.8 - ABNORMAL LEVELS OF OTHER SERUM ENZYMES SNOMED Code(s): 038561508 Comment: -Requested cards consult since pt today clarifies he has not had diarrhea despite its documentation on admission w/c makes the impression of AGE less likely -D/W Dr. iLcea -Given pts hx and temporal sequence of events, pt likely was having angina and had NSTEMI especially given CK index is 3-4% w/normal renal function -2Decho: Wall motion abn of apex w/ preserved EF = 55%, seems to be consistent w / above -Although D-dimer is mildly elevated, its value is what one can expect w/age; however, given above symptoms and cards reccs, will order CTA of chest to R/O PE to further R/O other confounders -Will lower ordered ASA to 81 mg/day -Continue Atorvastatin -For fasting lipid level in AM -Zosyn D/Cd earlier given (-) fecal lactoferrin makes it unlikely he has AGE from enteroinvasive organisims and unlikely inflammatory in nature (2) Chest pain Current Visit: Yes Status: Acute Code(s): R07.9 - CHEST PAIN, UNSPECIFIED SNOMED Code(s): 51095079 Comment: -As above -Continue PRN NTG (3) Coffee ground emesis Current Visit: Yes Status: Acute Code(s): K92.0 - HEMATEMESIS SNOMED Code( s): 62891318 Comment: -Reported by pt on admission -H&H relatively stable and pt otherwise hemodynamically stable -D/W Dr. Licea and plan is for possible LHC on Saturday but would like to further eval above; D/W Dr. Zhou for possible EGD in AM -Will place pt NPO after midnight; will await further input from GI (4) Parkinson disease Current Visit: Yes Status: Acute Code(s): G20 - PARKINSON'S DISEASE SNOMED Code(s): 69604217 Comment: -Continue Carbidopa/Levodopa (5) HTN (hypertension) Current Visit: Yes Status: Acute Code(s): I10 - ESSENTIAL (PRIMARY) HYPERTENSION SNOMED Code(s): 91408993 Comment: -Well-controlled -Continue Amlodipine (6) DVT prophylaxis Current Visit: Yes Status: Acute Code(s): WUK2052 - SNOMED Code(s): 362901636 Comment: -Changed Heparin SQ to q12H Status and Disposition: -Appreciate PT input; continue PT and reassessment of needs -NPO at midnight for anticipated EGD in AM
[2018-09-13] MEDS: Carbidopa/Levodop CR 50/200(*) TAB.CR PO SCH (21:45)
[2018-09-13] MEDS: Acetylcysteine CAP (RENAL)* 600 MG PO SCH (21:45)
[2018-09-14] MEDS: ZOSYN 3.375 GM Q8H per EXTENDED INFUSION IVPB SCH ×6 (06:19→22:09)
[2018-09-14 08:25] LABS: Hematocrit 42 % (42-52); Hemoglobin 14.1 g/dl (14.0-18.0); Mean Corpuscular HGB Conc 33 g/dl (31-36); Mean Corpuscular Hemoglobin 32 pg (27-31); Mean Corpuscular Volume 94 fL (80-94); Mean Platelet Volume 7.8 fL (7.4-10.4); Platelet Count 165 10^3/ul (150-450); Red Blood Count 4.46 10^6/ul (4.00-5.40); Red Cell Distribution Width 13 % (10.5-15); White Blood Count 3.5 10^3/ul (3.5-10.8)
[2018-09-14 08:40] LABS: ALT 5 U/L (7-52); AST 27 U/L (13-39); Albumin 3.6 g/dL (3.2-5.2); Albumin/Globulin Ratio 1.4 (1-3); Alkaline Phosphatase 76 U/L (34-104); Anion Gap 8 mmol/L (2-11); BUN/Creatinine Ratio 11.7 (8-20); Blood Urea Nitrogen 12 mg/dL (6-24); CO2 Carbon Dioxide 24 mmol/L (22-32); Calcium 8.9 mg/dL (8.6-10.3); Chloride 110 mmol/L (101-111); Cholesterol 90 mg/dL; EGFR African American 83.7 (>60); EGFR Non-African American 69.1 (>60); Globulin 2.6 g/dL (2-4); Glucose 97 mg/dL (70-100); HDL Cholesterol 28.1 mg/dL; LDL Cholesterol 44 mg/dL; Magnesium 1.9 mg/dL (1.9-2.7); Phosphorus 2.5 mg/dL (2.5-5.0); Potassium 3.9 mmol/L (3.5-5.0); Sodium 142 mmol/L (135-145); Total Protein 6.2 g/dL (6.4-8.9); Triglycerides 89 mg/dL
[2018-09-14 09:12] LABS: % Iron Saturation 46 % (15-55); Iron 105 ug/dL (50-212); Total Iron Binding Capacity 230 mcg/dL (250-450); Transferrin 164 mg/dL (203-362)
[2018-09-14 09:51] LABS: Ferritin 117.3 ng/mL (24-336)
[2018-09-14] MEDS: Cyanocobalamin TAB* 500 MCG PO SCH (10:49)
[2018-09-14] MEDS: Atorvastatin* 80 MG TAB PO SCH (10:49)
[2018-09-14] MEDS: Amantadine CAP* 100 MG PO SCH ×2 (10:50→18:11)
[2018-09-14] MEDS: Carbidopa/Levodop 25/250MG TAB(*) PO SCH ×4 (10:50→22:06)
[2018-09-14] MEDS: Docusate CAP* 100 MG PO SCH (10:51)
[2018-09-14] MEDS: Heparin VIAL(*) 5000 UNITS/ML VIAL (FIVE THOUSAND) SUBCUT SCH ×2 (10:51→22:09)
[2018-09-14] MEDS: Aspirin 81 mg CHEW TAB* 81 MG TAB.CHEW PO SCH (10:52)
[2018-09-14] MEDS: amLODIPine TAB* 5 MG PO SCH (10:52)
[2018-09-14] MEDS: Acetylcysteine CAP (RENAL)* 600 MG PO SCH (10:52)
[2018-09-14] MEDS ORDERED: fentaNYL* 50 MCG/ML 2 ML VIAL (100 MCG VIAL) ONE (12:25)
[2018-09-14] MEDS ORDERED: Midazolam* 1 MG/ML 5 ML VIAL (5 MG) ONE (12:25)
--- NOTE | 2018-09-14 14:37 | PN ---
Subjective Date of Service: 09/14/18 Interval History: Pt seen and examined. Meds and labs reviewed. Pt initially refused EGD scheduled today and mentioned he would like to first discuss this with his daughter; RN obtained pts daughters (Yanelis) number and updated her. She then subsequently spoke to her father who now agrees to have EGD done. D/W Dr. Zhou. Please see discussion below. CC: N/A ROS: Denied MALDONADO/dizziness, F/C, N/V, CP, SOB, increased cough, sputum production , abd pain, diarrhea, constipation, dysuria, myalgias, arthralgias, throat pain , and new skin lesions. The rest of the 14 point ROS are unremarkable. PHYSICAL EXAM: GEN APPEARANCE: Awake, not in acute distress HEENT: NC/AT, PERRLA, moist oral mucosa, (-) throat erythema NECK: Soft, supple, (-) cervical LAD, (-)JVD HEART: S1S2 WNL, RRR, No MRG CHEST: CTA, BL, GAE, No W/R/R ABD: Soft, ND/NT, NABS 4x Q EXT: No C/C/E SKIN: Warm to touch PSYCH: No active psychosis, hallucinations, depression, SI/HI Objective Active Medications: Acetaminophen (Tylenol Tab*) 650 mg PO Q6H PRN PRN Reason: FEVER/PAIN Acetylcysteine (Acetylcysteine Cap (Renal)*) 1,200 mg PO BID [facility] Stop: 09/15/18 09:01 Last Admin: 09/14/18 10:52 Dose: 1,200 mg Amantadine HCl (Symmetrel Cap*) 100 mg PO 1700 [facility] Last Admin: 09/13/18 16:52 Dose: 100 mg Amantadine HCl (Symmetrel Cap*) 100 mg PO QAM [facility] Last Admin: 09/14/18 10:50 Dose: 100 mg Amlodipine Besylate (Norvasc Tab*) 5 mg PO DAILY [facility] Last Admin: 09/14/18 10:52 Dose: 5 mg Aspirin (Aspirin 81 Mg Chew Tab*) 81 mg PO DAILY [facility] Last Admin: 09/14/18 10:52 Dose: Not Given Atorvastatin Calcium (Lipitor*) 80 mg PO DAILY [facility] Last Admin: 09/14/18 10:49 Dose: 80 mg Carbidopa/Levodopa (Sinemet 25/250 Tab(*)) 1 tab PO QID [facility] Last Admin: 09/14/18 14:00 Dose: Not Given Carbidopa/Levodopa (Sinemet Cr 50/200(*)) 1 tab.cr PO BEDTIME [facility] Last Admin: 09/13/18 21:45 Dose: 1 tab.cr Cyanocobalamin (Vitamin B12 Tab*) 500 mcg PO DAILY [facility] Last Admin: 09/14/18 10:49 Dose: 500 mcg Docusate Sodium (Colace Cap*) 200 mg PO BID [facility] Last Admin: 09/14/18 10:51 Dose: Not Given Heparin Sodium (Porcine) (Heparin Vial(*)) 5,000 units SUBCUT Q12H [facility] Last Admin: 09/14/18 10:51 Dose: 5,000 units Piperacillin Sod/Tazobactam (Sod 3.375 gm/ Sodium Chloride) 100 mls @ 25 mls/ hr IVPB Q8H [facility] Last Admin: 09/14/18 06:19 Dose: 25 mls/hr Nitroglycerin (Nitroglycerin Tab 0.4 Mg*) 0.4 mg SL Q5M PRN PRN Reason: ANGINA Ondansetron HCl (Zofran Inj*) 4 mg IV Q6H PRN PRN Reason: NAUSEA Pantoprazole Sodium (Protonix Tab*) 40 mg PO BID [facility] Senna (Senokot Tab*) 1 tab PO DAILY PRN PRN Reason: CONSTIPATION Vital Signs - 8 hr 09/14/18 09/14/18 08:00 08:27 Temperature 98.3 F Pulse Rate 78 Respiratory 16 20 Rate Blood Pressure 122/63 (mmHg) O2 Sat by Pulse 93 Oximetry Oxygen Devices in Use Now: None Result Diagrams: 09/14/18 08:14 09/14/18 08:14 Microbiology and Other Data: Microbiology 09/11/18 13:45 Stool Occult Blood (CARLITOS) - Final Stool Assess/Plan/Problems-Billing Assessment: - Patient Problems (1) Elevated troponin Current Visit: Yes Status: Acute Code(s): R74.8 - ABNORMAL LEVELS OF OTHER SERUM ENZYMES SNOMED Code(s): 700933068 Comment: -Requested cards consult since pt today clarifies he has not had diarrhea despite its documentation on admission w/c makes the impression of AGE less likely -D/W Dr. Licea -Given pts hx and temporal sequence of events, pt likely was having angina and had NSTEMI especially given CK index is 3-4% w/normal renal function -2Decho: Wall motion abn of apex w/ preserved EF = 55%, seems to be consistent w / above -Although D-dimer is mildly elevated, its value is what one can expect w/age; however, pt declined CTA of Chest; ordered V/Q scan in AM -Continue ASA to 81 mg/day -Continue Atorvastatin -LDL at goal; continue Atorvastatin -Zosyn D/Cd earlier given (-) fecal lactoferrin makes it unlikely he has AGE from enteroinvasive organisims and unlikely inflammatory in nature -Re-scheduled for EGD later today -D/W Dr. Zhou -Possible LHC in AM; will await any further Cardiology input prior to planned procedure (2) Chest pain Current Visit: Yes Status: Acute Code(s): R07.9 - CHEST PAIN, UNSPECIFIED SNOMED Code(s): 66257514 Comment: -As above -Continue PRN NTG (3) Coffee ground emesis Current Visit: Yes Status: Acute Code(s): K92.0 - HEMATEMESIS SNOMED Code( s): 44639591 Comment: -Reported by pt on admission -H&H relatively stable and pt otherwise hemodynamically stable -D/W Dr. Licea and plan is for possible LHC on Saturday but would like to further eval above; D/W Dr. Zhou for possible EGD in AM (4) Parkinson disease Current Visit: Yes Status: Acute Code(s): G20 - PARKINSON'S DISEASE SNOMED Code(s): 76858065 Comment: -Continue Carbidopa/Levodopa (5) HTN (hypertension) Current Visit: Yes Status: Acute Code(s): I10 - ESSENTIAL (PRIMARY) HYPERTENSION SNOMED Code(s): 23110202 Comment: -Well-controlled -Continue Amlodipine (6) DVT prophylaxis Current Visit: Yes Status: Acute Code(s): [id number] - SNOMED Code(s): 284444976 Comment: -Continue Heparin SQ to q12H Status and Disposition: -Will await EGD today -V/Q scan ordered in AM -Possible LHC in 1-2 days
--- NOTE | 2018-09-14 15:17 | CONS ---
GASTROENTEROLOGY CONSULT: DATE: CONSULTING PHYSICIAN: Dr. Chaitanya Desai, Dr. Cristobal Alvarado. REASON FOR CONSULTATION: Intermittently heme-positive stool and mild anemia in a man admitted with chest pain and dyspepsia with mild elevations in troponins, with a plan for cardiac catheterization soon with probable stents. HISTORY: This 83-year-old man with parkinsonism, who moved to live with his daughter in [place] in December 2017, says that he characteristically does not have gastric problems. About a month ago, he began having mild indigestion sense. He then backed off that and could not specify what that was. He is a difficult historian and seems to be somewhat overwhelmed by complexity of what is going on. He did not recall that yesterday he had seen a sand caster. At any rate, about 4 or 5 days ago, he awakened in the night at 1:00 a.m. with vomiting and felt distended. There was a question of coming to the emergency room, but he elected not to. He saw Dr. Desai, and on 09/11, he was looking okay, but at the recent flare of symptoms and heme-positive stool and was sent in for admission. His troponins have been up. His daughter, Yanelis Burns ([phone]), says that he does not characteristically complain of stomach distress. He does take Tums in the evening depending upon size of the meal. He has had some constipation, which he is aware is typical of parkinsonism and he takes milk of magnesia. He had an upper endoscopy in [place], [place], possibly 25 years ago. He is not sure why it was done, but recalls may be his voice was abnormal. He does not believe anything significant was found, but he was very dissatisfied with the whole experience and is reluctant to repeat it. He talked with his daughter and eventually did agree understanding that anticoagulation is probable after his cardiac catheterization. PAST MEDICAL HISTORY: 1. Parkinsonism. 2. Prostate cancer, status post abdominal surgery with a traditional lower midline scar. 3. Hypertension. 4. Right rotator cuff repair. 5. Trigger finger surgeries. MEDICATIONS: Carbidopa/levodopa, amantadine, vitamin B12, and Advil that he takes for headaches, knee pain, hip pain, and due to variety of indications. He minimizes their use. 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 He retired briefly to [place], [place], and then moved with his daughter to [place], [place]. She is a retired construction skills teacher. The daughter has responsibility of caring for the patient's , who also has parkinsonism and is more infirm and immobile than the patient. The patient's son-in-law is a senior tax specialist who also drives the [employer] at [facility]. REVIEW OF SYSTEMS: He does not take any aspirin and says he has never had an indication for that. He had colonoscopies in [place], possibly 3, nothing found to his knowledge. There is no history of seizures, syncope, TIA, arrhythmias, hepatitis, rectal bleeding, or recent fall or fracture. PHYSICAL EXAM: He is frail and moving slowly, answering questions slowly, and with an attempt to give extended background that with poor memory sometimes leads to forgetting the original question. HEENT exam is unremarkable. There is no icterus. He has no adenopathy. His lungs are clear with poor effort. Heart sounds are regular. The abdomen has a lower midline scar, it is mildly rounded with very active bowel sounds, though not a mechanical. The abdomen is quite soft and nontender. Rectal deferred. Repeat Hemoccult here at the hospital negative. Extremities show no edema. Pulses are intact. IMPRESSION: This 83-year-old man has had epigastric pain and chest pain, indeterminate in its description, but with elevated troponins and echocardiogram abnormalities, it is felt he would benefit from cardiac catheterization. Anticipating that a stent may be placed, knowing his risk for upper gastrointestinal bleeding is important. He does have a significant history of NSAID intake though no known UGI diagnoses or therapies documented previously. EGD will be arranged. The one positive Hemoccult and then one negative Hemoccult in the setting of having had 3 prior colonoscopies makes it unlikely that a colonoscopy would give information useful for current decision making. [id number]/[facility] #: [id number] [facility]
--- NOTE | 2018-09-14 17:21 | PN ---
Subjective Date of Service: 09/14/18 - CC: N/V and SS CP Interval History: 83 yo with no past cardiac history. PMHx HTN, PKSNs with N/V, SS CP and elevated troponins. Also hx coffee ground emisis. No GI c/o today. I talked with Dr Zhou and reviewed EGD images of ulceration Medications Active Medications: Acetaminophen (Tylenol Tab*) 650 mg PO Q6H PRN PRN Reason: FEVER/PAIN Acetylcysteine (Acetylcysteine Cap (Renal)*) 1,200 mg PO BID [facility] Stop: 09/15/18 09:01 Last Admin: 09/14/18 10:52 Dose: 1,200 mg Amantadine HCl (Symmetrel Cap*) 100 mg PO 1700 [facility] Last Admin: 09/13/18 16:52 Dose: 100 mg Amantadine HCl (Symmetrel Cap*) 100 mg PO QAM [facility] Last Admin: 09/14/18 10:50 Dose: 100 mg Amlodipine Besylate (Norvasc Tab*) 5 mg PO DAILY [facility] Last Admin: 09/14/18 10:52 Dose: 5 mg Aspirin (Aspirin 81 Mg Chew Tab*) 81 mg PO DAILY [facility] Last Admin: 09/14/18 10:52 Dose: Not Given Atorvastatin Calcium (Lipitor*) 80 mg PO DAILY [facility] Last Admin: 09/14/18 10:49 Dose: 80 mg Carbidopa/Levodopa (Sinemet 25/250 Tab(*)) 1 tab PO QID [facility] Last Admin: 09/14/18 14:00 Dose: Not Given Carbidopa/Levodopa (Sinemet Cr 50/200(*)) 1 tab.cr PO BEDTIME [facility] Last Admin: 09/13/18 21:45 Dose: 1 tab.cr Cyanocobalamin (Vitamin B12 Tab*) 500 mcg PO DAILY [facility] Last Admin: 09/14/18 10:49 Dose: 500 mcg Docusate Sodium (Colace Cap*) 200 mg PO BID [facility] Last Admin: 09/14/18 10:51 Dose: Not Given Heparin Sodium (Porcine) (Heparin Vial(*)) 5,000 units SUBCUT Q12H [facility] Last Admin: 09/14/18 10:51 Dose: 5,000 units Piperacillin Sod/Tazobactam (Sod 3.375 gm/ Sodium Chloride) 100 mls @ 25 mls/ hr IVPB Q8H [facility] Last Admin: 09/14/18 14:48 Dose: 25 mls/hr Nitroglycerin (Nitroglycerin Tab 0.4 Mg*) 0.4 mg SL Q5M PRN PRN Reason: ANGINA Ondansetron HCl (Zofran Inj*) 4 mg IV Q6H PRN PRN Reason: NAUSEA Pantoprazole Sodium (Protonix Tab*) 40 mg PO BID [facility] Senna (Senokot Tab*) 1 tab PO DAILY PRN PRN Reason: CONSTIPATION Objective Vital Signs: Temp Pulse Resp BP Pulse Ox 98.3 F 78 20 122/63 93 09/14/18 08:27 09/14/18 08:27 09/14/18 08:27 09/14/18 08:27 09/14/18 08:27 Oxygen Devices in Use Now: None Appearance: elderly gentleman lying 40 degrees in bed, confused (recent consiouis sedation) appears comfortable. Eyes: No Scleral Icterus, PERRLA Ears/Nose/Mouth/Throat: Mucous Membranes Moist Neck: NL Appearance and Movements; NL JVP, No Thyroid Enlargement, Masses Respiratory: Symmetrical Chest Expansion and Respiratory Effort, Clear to Auscultation Cardiovascular: NL Sounds; No Murmurs; No JVD, RRR Abdominal: - - Mildly distended, + bowel sounds, tympanetic c/w gas. Non tender. Extremities: No Edema, No Clubbing, Cyanosis Skin: No Rash or Ulcers Laboratory Results: 09/14/18 08:14 09/14/18 08:14 INR (Anticoag Therapy) 1.06 (0.77-1.02) H 09/11/18 13:22 APTT 28.4 seconds (26.0-36.3) 09/11/18 13:22 Total Bilirubin 0.80 mg/dL (0.2-1.0) 09/14/18 08:14 AST 27 U/L (13-39) 09/14/18 08:14 ALT 5 U/L (7-52) L 09/14/18 08:14 Alkaline Phosphatase 76 U/L (34-104) 09/14/18 08:14 CK-MB (CK-2) 5.0 ng/mL (0.6-6.3) 09/13/18 06:22 Total Protein 6.2 g/dL (6.4-8.9) L 09/14/18 08:14 Albumin 3.6 g/dL (3.2-5.2) 09/14/18 08:14 Globulin 2.6 g/dL (2-4) 09/14/18 08:14 Albumin/Globulin Ratio 1.4 (1-3) 09/14/18 08:14 Triglycerides 89 mg/dL 09/14/18 08:14 Cholesterol 90 mg/dL 09/14/18 08:14 LDL Cholesterol 44 mg/dL 09/14/18 08:14 HDL Cholesterol 28.1 mg/dL 09/14/18 08:14 09/11/18 09/12/18 09/12/18 13:22 14:13 19:28 Troponin I 0.01 0.30 H* 0.25 H* 09/13/18 09/13/18 06:22 13:39 Troponin I 0.22 H* 0.25 H* Diagnostic Imaging: CT abdomen: Reported as no acute abdominal findings, to my review prominent gas in gastrum and in intestine. Calcific plaquing noted descending aorta thorax and abdomen. 'tics noted. Echo: Limited, showed LVEF 55%, aortic and mitral sclerosis, RV apical hypokinesis. EGD: HH, ulceration. EKG Data: 09/11/18: NSR 94 bpm, ST depression laterally. 09/13/18: NSR 63 bpm, normal ST's Assessment/Plan 83 yo male with PMHx PKSNs, HTN presenting with acute onset n/v SS chest discomfort, diaphoresis with mild ST depression and mild elevation in troponins. CAD risks of HTN, low HDL, calcific plaque seen in the aorta. RV apex hypokinetic on limited echo. Differential of NQMI or could be demand ischemia from GI presentation. PE possible, less likely. With ulcer, plan for leximyoview in AM, cath in the future after PPI has had time to heal ulcer if stress test indicates a significant area of ischemia. Probable CAD/elevated troponins: Lipids: low HDL, but LDL well controlled. Could decrease lipator to 40 mg/ day now, titrate based on cardiac work up results. ASA to [address] Zhou prefers off for now. Continue amlodipine for now.
--- NOTE | 2018-09-14 20:01 | PRO ---
DATE: 09/14/18 - ROOM #[id number] REFERRING PHYSICIANS: Chaitanya Desai, Daisy Licea. * PROCEDURE: Upper gastrointestinal endoscopy and biopsy for gastric CLOtest. INDICATION: This 83-year-old man with parkinsonism has had epigastric distress. There was a history of probable coffee-ground emesis, though that is a little bit unclear. See separate consultation. Since admission, his troponins have been up and it is felt he has segmental wall motion abnormalities and cardiac catheterization is planned. One Hemoccult as an outpatient was positive and one as an inpatient was negative. His iron studies today were normal. ENDOSCOPIST: Dr. Zhou. MEDICATIONS: Midazolam 5, fentanyl 50. FINDINGS: Several sequential conversations were had with the patient, his daughter, the patient again and then the daughter and then the nurse going over MOLST forms and defining goals of care. EGD: Larynx - narrow, symmetric views. Esophagus - easily entered, the mucosa is normal in the upper, mid and lower esophagus with the EG junction loose and there was a small to medium hiatal hernia with some minimal erythema at the squamocolumnar junction. There was no Longoria's change and no true significant erosions. There was no stricture. Stomach - some minimal erosions in the gastric fundus on retroflexion. There was no active bleeding or clot. The changes were quite mild. Gastric body, distal fundus and proximal antrum were normal. The distal antrum was deformed with some chronic scarring. Duodenum - the pylorus was scarred and somewhat open. There were a couple of small ulcers at the 4 o'clock orientation, indeterminate as to whether in the pyloric area or more likely the duodenal bulb. They were small, but somewhat chronic and deep. There was no active bleeding. There was some restriction to entering the third portion of the duodenum with some scar narrowing at the apex of the bulb. During withdrawal, a CLOtest was taken gastric body. IMPRESSION: 1. Small to medium hiatal hernia - fits his history of taking Tums with provocative meals. 2. Mild proximal gastric irritation - fits his Advil use which his daughter revealed had fluctuated over time. He had a history of significant headaches decades ago, but had told his daughter that the headache stopped 5 or maybe 7 years ago. It is unclear why they would have stopped. More recently, he has been taking Advil for low back pain, purchasing a bottle of 100 to 200 every 3 months per his dtr and his . 3. Duodenal ulcers - small and perceived to be relatively low risk for bleeding as they have not bled so far. He will be started on a PPI twice a day. His cardiac risk assessment is proceeding. Addendum: Clotest negative; stool OB 5 days earlier negative [id number]/CPS #: [id number] [facility]
[2018-09-14] MEDS: Carbidopa/Levodop CR 50/200(*) TAB.CR PO SCH (22:05)
[2018-09-15] MEDS ORDERED: Haloperidol INJ IV/IM* 5 MG/ML AMP ONE ×2 (00:04→00:13)
[2018-09-15] MEDS: Haloperidol INJ IV/IM* 5 MG/ML AMP IV SLOW PU PRN ×2 (00:08→01:36)
[2018-09-15] MEDS: Pantoprazole TAB * 40 MG TAB PO SCH ×3 (00:53→21:56)
[2018-09-15] MEDS: Acetylcysteine CAP (RENAL)* 600 MG PO SCH ×2 (00:53→09:52)
[2018-09-15] MEDS: Docusate CAP* 100 MG PO SCH ×3 (00:53→21:56)
[2018-09-15] MEDS: ZOSYN 3.375 GM Q8H per EXTENDED INFUSION IVPB SCH ×6 (02:39→18:16)
[2018-09-15] MEDS ORDERED: LORazepam INJ* 2 MG/ML 1 ML VIAL ONE (06:27)
[2018-09-15] MEDS ORDERED: LORazepam INJ* 2 MG/ML 1 ML VIAL IV PUSH ONE (06:34)
[2018-09-15 09:36] LABS: ABS Basophils 0 10^3/ul (0-0.2); ABS Eosinophils 0.1 10^3/ul (0-0.6); ABS Lymphocytes 0.8 10^3/ul (1.0-4.8); ABS Monocytes 0.8 10^3/ul (0-0.8); ABS Neutrophils 3.2 10^3/ul (1.5-7.7); ABS Nucleated RBC 0 10^3/ul; Eosinophil % 2.5 %; Hematocrit 43 % (42-52); Hemoglobin 14.3 g/dl (14.0-18.0); Lymphocyte % 16.7 %; Mean Corpuscular HGB Conc 33 g/dl (31-36); Mean Corpuscular Hemoglobin 31 pg (27-31); Mean Corpuscular Volume 94 fL (80-94); Mean Platelet Volume 7.6 fL (7.4-10.4); Nucleated Red Blood Cells % 0; Platelet Count 184 10^3/ul (150-450); Red Blood Count 4.55 10^6/ul (4.00-5.40); Red Cell Distribution Width 13 % (10.5-15)
[2018-09-15] MEDS: Cyanocobalamin TAB* 500 MCG PO SCH (09:52)
[2018-09-15] MEDS: amLODIPine TAB* 5 MG PO SCH (09:52)
[2018-09-15] MEDS: Amantadine CAP* 100 MG PO SCH ×2 (09:52→16:19)
[2018-09-15] MEDS: Atorvastatin* 80 MG TAB PO SCH (09:52)
[2018-09-15] MEDS: Heparin VIAL(*) 5000 UNITS/ML VIAL (FIVE THOUSAND) SUBCUT SCH ×2 (09:52→21:57)
[2018-09-15] MEDS: Aspirin 81 mg CHEW TAB* 81 MG TAB.CHEW PO SCH (09:52)
[2018-09-15] MEDS: Carbidopa/Levodop 25/250MG TAB(*) PO SCH ×4 (09:52→21:56)
[2018-09-15 09:53] LABS: BUN/Creatinine Ratio 7.9 (8-20); Calcium 9.3 mg/dL (8.6-10.3); EGFR African American 74.4 (>60); EGFR Non-African American 61.5 (>60); Magnesium 2.1 mg/dL (1.9-2.7); Phosphorus 3.4 mg/dL (2.5-5.0); Potassium 4.9 mmol/L (3.5-5.0)
--- NOTE | 2018-09-15 16:58 | PN ---
Subjective Date of Service: 09/15/18 Interval History: Pt seen and examined. Meds and labs reviewed. Pt was agitated and aggressive to staff last night and had recived Haldol 2.5 mg and Ativan 1 mg. Per RN this AM, pt was awake and interactive but did not get sleep last night and on my visit, pt was asleep but is arousable and confused when awoken. CC: Confusion ROS: Unable to give reliable 14-point ROS given mental status change PHYSICAL EXAM: GEN APPEARANCE: Asleep, arousable but confused when awoken, not in acute distress HEENT: NC/AT, PERRLA, moist oral mucosa, (-) throat erythema NECK: Soft, supple, (-) cervical LAD, (-)JVD HEART: S1S2 WNL, RRR, No MRG CHEST: CTA, BL, GAE, No W/R/R ABD: Soft, ND/NT, NABS 4x Q EXT: No C/C/E SKIN: Warm to touch PSYCH: No active psychosis, hallucinations, depression, SI/HI Objective Active Medications: Acetaminophen (Tylenol Tab*) 650 mg PO Q6H PRN PRN Reason: FEVER/PAIN Amantadine HCl (Symmetrel Cap*) 100 mg PO 1700 [facility] Last Admin: 09/15/18 16:19 Dose: Not Given Amantadine HCl (Symmetrel Cap*) 100 mg PO QAM [facility] Last Admin: 09/15/18 09:52 Dose: Not Given Amlodipine Besylate (Norvasc Tab*) 5 mg PO DAILY [facility] Last Admin: 09/15/18 09:52 Dose: Not Given Aspirin (Aspirin 81 Mg Chew Tab*) 81 mg PO DAILY [facility] Last Admin: 09/15/18 09:52 Dose: Not Given Atorvastatin Calcium (Lipitor*) 40 mg PO DAILY [facility] Carbidopa/Levodopa (Sinemet 25/250 Tab(*)) 1 tab PO QID [facility] Last Admin: 09/15/18 16:18 Dose: Not Given Carbidopa/Levodopa (Sinemet Cr 50/200(*)) 1 tab.cr PO BEDTIME [facility] Last Admin: 09/14/18 22:05 Dose: 1 tab.cr Cyanocobalamin (Vitamin B12 Tab*) 500 mcg PO DAILY [facility] Last Admin: 09/15/18 09:52 Dose: Not Given Docusate Sodium (Colace Cap*) 200 mg PO BID [facility] Last Admin: 09/15/18 09:52 Dose: Not Given Haloperidol Lactate (Haldol Inj Iv/Im*) 2.5 mg IV SLOW PU Q6H PRN PRN Reason: AGITATION Last Admin: 09/15/18 01:36 Dose: 2.5 mg Heparin Sodium (Porcine) (Heparin Vial(*)) 5,000 units SUBCUT Q12H [facility] Last Admin: 09/15/18 09:52 Dose: Not Given Piperacillin Sod/Tazobactam (Sod 3.375 gm/ Sodium Chloride) 100 mls @ 25 mls/ hr IVPB 0230,1030,1830 [facility] Last Admin: 09/15/18 10:06 Dose: 25 mls/hr Nitroglycerin (Nitroglycerin Tab 0.4 Mg*) 0.4 mg SL Q5M PRN PRN Reason: ANGINA Ondansetron HCl (Zofran Inj*) 4 mg IV Q6H PRN PRN Reason: NAUSEA Pantoprazole Sodium (Protonix Tab*) 40 mg PO BID [facility] Last Admin: 09/15/18 09:53 Dose: Not Given Senna (Senokot Tab*) 1 tab PO DAILY PRN PRN Reason: CONSTIPATION Vital Signs - 8 hr 09/15/18 09/15/18 09:53 11:28 Temperature 97.7 F Pulse Rate 71 Respiratory 20 18 Rate Blood Pressure 166/81 (mmHg) O2 Sat by Pulse 97 Oximetry Oxygen Devices in Use Now: None Result Diagrams: 09/15/18 09:28 09/15/18 09:28 Microbiology and Other Data: Microbiology 09/11/18 13:45 Stool Occult Blood (CARLITOS) - Final Stool Assess/Plan/Problems-Billing Assessment: - Patient Problems (1) Change in mental status Current Visit: Yes Status: Acute Code(s): R41.82 - ALTERED MENTAL STATUS, UNSPECIFIED SNOMED Code(s): 883930840 Comment: -Likely a bad reaction to sedation during EGD due to hx of Parkinsons? -Per RN, pt was interactive this AM but did not sleep last night and could be confounded by sleep deprivation -Will order CT of head to R/O acute bleed (2) Elevated troponin Current Visit: Yes Status: Acute Code(s): R74.8 - ABNORMAL LEVELS OF OTHER SERUM ENZYMES SNOMED Code(s): 315623178 Comment: -Requested cards consult since pt today clarifies he has not had diarrhea despite its documentation on admission w/c makes the impression of AGE less likely; no incidence of hypotension documented since admission -Appreciate Dr. Licea re-eval last night and given PUD, plan for cath postponed to allow lesion to heal and pt scheduled for stress test; unfortunately pt is still confused today -Given pts hx and temporal sequence of events, pt likely was having angina and had NSTEMI especially given CK index is 3-4% w/normal renal function -2Decho: Wall motion abn of apex w/ preserved EF = 55%, seems to be consistent w / above -Although D-dimer is mildly elevated, its value is what one can expect w/age; however, pt declined CTA of Chest; ordered V/Q scan in AM (given it cannot be done today given MS change) -Continue ASA to 81 mg/day -Continue Atorvastatin -LDL at goal; Atorvastatin decreased to 40 mg -Zosyn D/Cd earlier given (-) fecal lactoferrin makes it unlikely he has AGE from enteroinvasive organisims and unlikely inflammatory in nature -D/W Dr. Zhou (3) Chest pain Current Visit: Yes Status: Acute Code(s): R07.9 - CHEST PAIN, UNSPECIFIED SNOMED Code(s): 24904737 Comment: -As above -Continue PRN NTG (4) Coffee ground emesis Current Visit: Yes Status: Acute Code(s): K92.0 - HEMATEMESIS SNOMED Code( s): 74352126 Comment: -Likely due to mild proximal gastric irritation in the setting of small duodenal ulcers, although PUD is deemed low risk for rebleeds by Dr. Zhou -Reported by pt on admission -H&H relatively stable and pt otherwise hemodynamically stable -Continue Pantoprazole PO BID (5) Parkinson disease Current Visit: Yes Status: Acute Code(s): G20 - PARKINSON'S DISEASE SNOMED Code(s): 39280529 Comment: -Continue Carbidopa/Levodopa (6) HTN (hypertension) Current Visit: Yes Status: Acute Code(s): I10 - ESSENTIAL (PRIMARY) HYPERTENSION SNOMED Code(s): 18675923 Comment: -Continue Amlodipine -Continue watchful waiting (7) DVT prophylaxis Current Visit: Yes Status: Acute Code(s): IWE4090 - SNOMED Code(s): 505056460 Comment: -Continue Heparin SQ to q12H Status and Disposition: -V/Q scan in AM (cannot be done due to pts MS change today) -Stress test in AM (pt still asleep and beligerant today)
[2018-09-15] MEDS: Carbidopa/Levodop CR 50/200(*) TAB.CR PO SCH (21:55)
[2018-09-16] MEDS: ZOSYN 3.375 GM Q8H per EXTENDED INFUSION IVPB SCH ×6 (02:19→17:31)
[2018-09-16 07:07] LABS: Hematocrit 44 % (42-52); Hemoglobin 14.6 g/dl (14.0-18.0); Mean Corpuscular HGB Conc 34 g/dl (31-36); Mean Corpuscular Hemoglobin 31 pg (27-31); Mean Corpuscular Volume 94 fL (80-94); Mean Platelet Volume 7.9 fL (7.4-10.4); Platelet Count 201 10^3/ul (150-450); Red Blood Count 4.66 10^6/ul (4.00-5.40); Red Cell Distribution Width 13 % (10.5-15); White Blood Count 6.2 10^3/ul (3.5-10.8)
[2018-09-16 07:42] LABS: Albumin 3.8 g/dL (3.2-5.2); Albumin/Globulin Ratio 1.4 (1-3); BUN/Creatinine Ratio 9.7 (8-20); Calcium 9.3 mg/dL (8.6-10.3); EGFR African American 83.7 (>60); EGFR Non-African American 69.1 (>60); Globulin 2.7 g/dL (2-4); Phosphorus 3.4 mg/dL (2.5-5.0); Potassium 3.9 mmol/L (3.5-5.0); Total Bilirubin 0.7 mg/dL (0.2-1.0); Total Protein 6.5 g/dL (6.4-8.9)
[2018-09-16] MEDS: Heparin VIAL(*) 5000 UNITS/ML VIAL (FIVE THOUSAND) SUBCUT SCH ×2 (10:07→20:20)
[2018-09-16] MEDS: Amantadine CAP* 100 MG PO SCH ×2 (10:07→17:32)
[2018-09-16] MEDS: Cyanocobalamin TAB* 500 MCG PO SCH (10:07)
[2018-09-16] MEDS: Atorvastatin* 40 MG TAB PO SCH (10:07)
[2018-09-16] MEDS: Pantoprazole TAB * 40 MG TAB PO SCH ×2 (10:07→20:20)
[2018-09-16] MEDS: Carbidopa/Levodop 25/250MG TAB(*) PO SCH ×4 (10:08→20:20)
[2018-09-16] MEDS: Docusate CAP* 100 MG PO SCH ×2 (10:08→20:20)
[2018-09-16] MEDS: Aspirin 81 mg CHEW TAB* 81 MG TAB.CHEW PO SCH (10:08)
[2018-09-16] MEDS: amLODIPine TAB* 5 MG PO SCH (10:08)
[2018-09-16] MEDS ORDERED: Regadenoson* 0.4 MG/5 ML SYRINGE ONE (12:24)
[2018-09-16] MEDS ORDERED: Aminophylline IV* 25 MG/ML 10 ML VIAL ONE (12:24)
--- NOTE | 2018-09-16 16:59 | PN ---
Subjective Date of Service: 09/16/18 Interval History: Pt seen and examined. Meds and labs reviewed. CC: N/A ROS: Denied MALDONADO/dizziness, F/C, N/V, CP, SOB, increased cough, sputum production , abd pain, diarrhea, constipation, dysuria, myalgias, arthralgias, throat pain , and new skin lesions. The rest of the 14 point ROS are unremarkable. PHYSICAL EXAM: GEN APPEARANCE: Awake, not in acute distress, Ox3 HEENT: NC/AT, PERRLA, moist oral mucosa, (-) throat erythema NECK: Soft, supple, (-) cervical LAD, (-)JVD HEART: S1S2 WNL, RRR, No MRG CHEST: CTA, BL, GAE, No W/R/R ABD: Soft, ND/NT, NABS 4x Q EXT: No C/C/E SKIN: Warm to touch PSYCH: No active psychosis, hallucinations, depression, SI/HI Objective Active Medications: Acetaminophen (Tylenol Tab*) 650 mg PO Q6H PRN PRN Reason: FEVER/PAIN Amantadine HCl (Symmetrel Cap*) 100 mg PO 1700 [facility] Last Admin: 09/15/18 16:19 Dose: Not Given Amantadine HCl (Symmetrel Cap*) 100 mg PO QAM [facility] Last Admin: 09/16/18 10:07 Dose: 100 mg Amlodipine Besylate (Norvasc Tab*) 5 mg PO DAILY [facility] Last Admin: 09/16/18 10:08 Dose: 5 mg Aspirin (Aspirin 81 Mg Chew Tab*) 81 mg PO DAILY [facility] Last Admin: 09/16/18 10:08 Dose: 81 mg Atorvastatin Calcium (Lipitor*) 40 mg PO DAILY [facility] Last Admin: 09/16/18 10:07 Dose: 40 mg Carbidopa/Levodopa (Sinemet 25/250 Tab(*)) 1 tab PO QID [facility] Last Admin: 09/16/18 14:43 Dose: 1 tab Carbidopa/Levodopa (Sinemet Cr 50/200(*)) 1 tab.cr PO BEDTIME [facility] Last Admin: 09/15/18 21:55 Dose: 1 tab.cr Cyanocobalamin (Vitamin B12 Tab*) 500 mcg PO DAILY [facility] Last Admin: 09/16/18 10:07 Dose: 500 mcg Docusate Sodium (Colace Cap*) 200 mg PO BID [facility] Last Admin: 09/16/18 10:08 Dose: 200 mg Haloperidol Lactate (Haldol Inj Iv/Im*) 2.5 mg IV SLOW PU Q6H PRN PRN Reason: AGITATION Last Admin: 09/15/18 01:36 Dose: 2.5 mg Heparin Sodium (Porcine) (Heparin Vial(*)) 5,000 units SUBCUT Q12H [facility] Last Admin: 09/16/18 10:07 Dose: 5,000 units Piperacillin Sod/Tazobactam (Sod 3.375 gm/ Sodium Chloride) 100 mls @ 25 mls/ hr IVPB 0230,1030,1830 [facility] Last Admin: 09/16/18 10:07 Dose: 25 mls/hr Nitroglycerin (Nitroglycerin Tab 0.4 Mg*) 0.4 mg SL Q5M PRN PRN Reason: ANGINA Ondansetron HCl (Zofran Inj*) 4 mg IV Q6H PRN PRN Reason: NAUSEA Pantoprazole Sodium (Protonix Tab*) 40 mg PO BID [facility] Last Admin: 09/16/18 10:07 Dose: 40 mg Senna (Senokot Tab*) 1 tab PO DAILY PRN PRN Reason: CONSTIPATION Vital Signs - 8 hr 09/16/18 11:40 Temperature 98.1 F Pulse Rate 80 Respiratory 18 Rate Blood Pressure 125/72 (mmHg) O2 Sat by Pulse 95 Oximetry Oxygen Devices in Use Now: None Result Diagrams: 09/16/18 06:49 09/16/18 06:49 Microbiology and Other Data: Microbiology 09/11/18 13:45 Stool Occult Blood (CARLITOS) - Final Stool Assess/Plan/Problems-Billing Assessment: - Patient Problems (1) Change in mental status Current Visit: Yes Status: Acute Code(s): R41.82 - ALTERED MENTAL STATUS, UNSPECIFIED SNOMED Code(s): 096558734 Comment: -Resolved -Likely a bad reaction to sedation during EGD due to hx of Parkinsons? -Worsened w/sleep deprivation -CT head (09/15/18): NAD (2) Elevated troponin Current Visit: Yes Status: Acute Code(s): R74.8 - ABNORMAL LEVELS OF OTHER SERUM ENZYMES SNOMED Code(s): 748070485 Comment: -Requested cards consult since pt today clarifies he has not had diarrhea despite its documentation on admission w/c makes the impression of AGE less likely; no incidence of hypotension documented since admission -Appreciate Dr. Licea re-eval last night and given PUD, plan for cath postponed to allow lesion to heal and pt sent for stress test today w/c was read as low probability -Given pts hx and temporal sequence of events, pt likely was having angina and had NSTEMI especially given CK index is 3-4% w/normal renal function, however, given low probability stress test, if accurate could suggest demand? Defer w/ cards if C still plan once PUD/GI concerns subsides -2Decho: Wall motion abn of apex w/ preserved EF = 55%, seems to be consistent w / above -Although D-dimer is mildly elevated, its value is what one can expect w/age; however, pt declined CTA of Chest; ordered V/Q scan in AM (given it cannot be done today given MS change)---unfortunately V/Q scan cannot be done until 48 hours has passed from stress test -Continue ASA to 81 mg/day -Continue Atorvastatin -LDL at goal; Atorvastatin decreased to 40 mg -Zosyn D/Cd earlier given (-) fecal lactoferrin makes it unlikely he has AGE from enteroinvasive organisims and unlikely inflammatory in nature -D/W Dr. Zhou (3) Chest pain Current Visit: Yes Status: Acute Code(s): R07.9 - CHEST PAIN, UNSPECIFIED SNOMED Code(s): 60193494 Comment: -As above -Continue PRN NTG (4) Coffee ground emesis Current Visit: Yes Status: Acute Code(s): K92.0 - HEMATEMESIS SNOMED Code( s): 87070816 Comment: -Likely due to mild proximal gastric irritation in the setting of small duodenal ulcers, although PUD is deemed low risk for rebleeds by Dr. Zhou -Reported by pt on admission -H&H relatively stable and pt otherwise hemodynamically stable -Continue Pantoprazole PO BID (5) Parkinson disease Current Visit: Yes Status: Acute Code(s): G20 - PARKINSON'S DISEASE SNOMED Code(s): 52893467 Comment: -Continue Carbidopa/Levodopa (6) HTN (hypertension) Current Visit: Yes Status: Acute Code(s): I10 - ESSENTIAL (PRIMARY) HYPERTENSION SNOMED Code(s): 75227216 Comment: -Continue Amlodipine -Continue watchful waiting (7) DVT prophylaxis Current Visit: Yes Status: Acute Code(s): CGY0451 - SNOMED Code(s): 245699707 Comment: -Continue Heparin SQ to q12H Status and Disposition: -V/Q scan 48 hrs post stress test; however, will defer w/colleague given this is low in my differentials; please see above disucssion -As above
[2018-09-16] MEDS: Carbidopa/Levodop CR 50/200(*) TAB.CR PO SCH (20:20)
[2018-09-17] MEDS: ZOSYN 3.375 GM Q8H per EXTENDED INFUSION IVPB SCH ×6 (02:24→17:53)
[2018-09-17] MEDS: Docusate CAP* 100 MG PO SCH ×2 (08:52→20:16)
[2018-09-17] MEDS: Heparin VIAL(*) 5000 UNITS/ML VIAL (FIVE THOUSAND) SUBCUT SCH ×2 (08:58→20:09)
[2018-09-17] MEDS: Amantadine CAP* 100 MG PO SCH ×2 (09:00→17:53)
[2018-09-17] MEDS: Atorvastatin* 40 MG TAB PO SCH (09:00)
[2018-09-17] MEDS: Aspirin 81 mg CHEW TAB* 81 MG TAB.CHEW PO SCH (09:01)
[2018-09-17] MEDS: Carbidopa/Levodop 25/250MG TAB(*) PO SCH ×4 (09:01→20:09)
[2018-09-17] MEDS: amLODIPine TAB* 5 MG PO SCH (09:01)
[2018-09-17] MEDS: Cyanocobalamin TAB* 500 MCG PO SCH (09:01)
[2018-09-17] MEDS: Pantoprazole TAB * 40 MG TAB PO SCH ×2 (09:01→20:08)
--- NOTE | 2018-09-17 19:16 | PN ---
Subjective Date of Service: 09/17/18 Interval History: patient seen today. in bed. calm cooperative. doing well,. complains of extreme weakness of both arms. he is getting PT but he can not recall. Family History: Unchanged from Admission Past Medical History: Unchanged from Admission Objective Active Medications: Acetaminophen (Tylenol Tab*) 650 mg PO Q6H PRN PRN Reason: FEVER/PAIN Amantadine HCl (Symmetrel Cap*) 100 mg PO 1700 [facility] Last Admin: 09/17/18 17:53 Dose: 100 mg Amantadine HCl (Symmetrel Cap*) 100 mg PO QAM [facility] Last Admin: 09/17/18 09:00 Dose: 100 mg Amlodipine Besylate (Norvasc Tab*) 5 mg PO DAILY [facility] Last Admin: 09/17/18 09:01 Dose: 5 mg Aspirin (Aspirin 81 Mg Chew Tab*) 81 mg PO DAILY [facility] Last Admin: 09/17/18 09:01 Dose: 81 mg Carbidopa/Levodopa (Sinemet 25/250 Tab(*)) 1 tab PO QID [facility] Last Admin: 09/17/18 17:58 Dose: 1 tab Carbidopa/Levodopa (Sinemet Cr 50/200(*)) 1 tab.cr PO BEDTIME [facility] Last Admin: 09/16/18 20:20 Dose: 1 tab.cr Cyanocobalamin (Vitamin B12 Tab*) 500 mcg PO DAILY [facility] Last Admin: 09/17/18 09:01 Dose: 500 mcg Docusate Sodium (Colace Cap*) 200 mg PO BID [facility] Last Admin: 09/17/18 08:52 Dose: Not Given Haloperidol Lactate (Haldol Inj Iv/Im*) 2.5 mg IV SLOW PU Q6H PRN PRN Reason: AGITATION Last Admin: 09/15/18 01:36 Dose: 2.5 mg Heparin Sodium (Porcine) (Heparin Vial(*)) 5,000 units SUBCUT Q12H [facility] Last Admin: 09/17/18 08:58 Dose: 5,000 units Piperacillin Sod/Tazobactam (Sod 3.375 gm/ Sodium Chloride) 100 mls @ 25 mls/ hr IVPB 0230,1030,1830 [facility] Last Admin: 09/17/18 17:53 Dose: 25 mls/hr Nitroglycerin (Nitroglycerin Tab 0.4 Mg*) 0.4 mg SL Q5M PRN PRN Reason: ANGINA Ondansetron HCl (Zofran Inj*) 4 mg IV Q6H PRN PRN Reason: NAUSEA Pantoprazole Sodium (Protonix Tab*) 40 mg PO BID [facility] Last Admin: 09/17/18 09:01 Dose: 40 mg Senna (Senokot Tab*) 1 tab PO DAILY PRN PRN Reason: CONSTIPATION Vital Signs - 8 hr 09/17/18 09/17/18 09/17/18 12:20 14:20 16:06 Temperature 98.0 F 97.4 F 97.3 F Pulse Rate 72 78 73 Respiratory 18 18 18 Rate Blood Pressure 132/72 107/67 101/62 (mmHg) O2 Sat by Pulse 94 93 94 Oximetry Oxygen Devices in Use Now: None Appearance: Awake, Alert. Pleasant very cooporative Eyes: No Scleral Icterus, - Ears/Nose/Mouth/Throat: Clear Oropharnyx, Mucous Membranes Moist Neck: NL Appearance and Movements; NL JVP, Trachea Midline Respiratory: Clear to Auscultation Cardiovascular: NL Sounds; No Murmurs; No JVD Abdominal: NL Sounds; No Tenderness; No Distention Neurological: Alert and Oriented x 3, - - increase rigidity Result Diagrams: 09/16/18 06:49 09/16/18 06:49 Microbiology and Other Data: Microbiology 09/11/18 13:45 Stool Occult Blood (CARLITOS) - Final Stool Assess/Plan/Problems-Billing Assessment: 83 y/o male presented with UGI bleed - Patient Problems (1) Coffee ground emesis Current Visit: Yes Status: Acute Code(s): K92.0 - HEMATEMESIS SNOMED Code( s): 96843003 Comment: -Likely due to mild proximal gastric irritation in the setting of small duodenal ulcers, although PUD is deemed low risk for rebleeds by Dr. Zhou - s/p EGD 09/14/18 -Continue Pantoprazole PO BID (2) Change in mental status Current Visit: Yes Status: Acute Code(s): R41.82 - ALTERED MENTAL STATUS, UNSPECIFIED SNOMED Code(s): 225883890 Comment: -Resolved -Likely a bad reaction to sedation during EGD due to hx of Parkinsons? -Worsened w/sleep deprivation -CT head (02/25/19): NAD (3) Elevated troponin Current Visit: Yes Status: Acute Code(s): R74.8 - ABNORMAL LEVELS OF OTHER SERUM ENZYMES SNOMED Code(s): 851580408 Comment: -Requested cards consult since pt today clarifies he has not had diarrhea despite its documentation on admission w/c makes the impression of AGE less likely; no incidence of hypotension documented since admission -Appreciate Dr. Licea re-eval last night and given PUD, plan for cath postponed to allow lesion to heal and pt sent for stress test today w/c was read as low probability -Given pts hx and temporal sequence of events, pt likely was having angina and had NSTEMI especially given CK index is 3-4% w/normal renal function, however, given low probability stress test, if accurate could suggest demand? Defer w/ cards if LHC still plan once PUD/GI concerns subsides -2Decho: Wall motion abn of apex w/ preserved EF = 55%, seems to be consistent w / above -Although D-dimer is mildly elevated, its value is what one can expect w/age; however, pt declined CTA of Chest; ordered V/Q scan in AM (given it cannot be done today given MS change)---unfortunately V/Q scan cannot be done until 48 hours has passed from stress test -Continue ASA to 81 mg/day -Continue Atorvastatin -LDL at goal; Atorvastatin decreased to 40 mg -Zosyn D/Cd earlier given (-) fecal lactoferrin makes it unlikely he has AGE from enteroinvasive organisims and unlikely inflammatory in nature -D/W Dr. Zhou (4) HTN (hypertension) Current Visit: Yes Status: Acute Code(s): I10 - ESSENTIAL (PRIMARY) HYPERTENSION SNOMED Code(s): 62580940 Comment: -Continue Amlodipine (5) Parkinson disease Current Visit: Yes Status: Acute Code(s): G20 - PARKINSON'S DISEASE SNOMED Code(s): 55325886 Comment: - continue amantandine -Continue Carbidopa/Levodopa (6) DVT prophylaxis Current Visit: Yes Status: Acute Code(s): XIE7945 - SNOMED Code(s): 289681631 Comment: -Continue Heparin SQ to q12H
--- NOTE | 2018-09-17 19:51 | PN ---
Cardiology Progress Note Date of Service: 09/17/18 - CC: N/V, diaphoresis, SS burning No further n/v cp. Nuclear study reviewed, hyperdynamic LV, normal perfusion. Vital Signs: Temp Pulse Resp BP Pulse Ox 97.3 F 73 18 101/62 94 09/17/18 16:06 09/17/18 16:06 09/17/18 16:06 09/17/18 16:06 09/17/18 16:06 Mentation back to baseline. Clear lungs S1S2 regular. Acetaminophen (Tylenol Tab*) 650 mg PO Q6H PRN PRN Reason: FEVER/PAIN Amantadine HCl (Symmetrel Cap*) 100 mg PO 1700 [facility] Last Admin: 09/17/18 17:53 Dose: 100 mg Amantadine HCl (Symmetrel Cap*) 100 mg PO QAM [facility] Last Admin: 09/17/18 09:00 Dose: 100 mg Amlodipine Besylate (Norvasc Tab*) 5 mg PO DAILY [facility] Last Admin: 09/17/18 09:01 Dose: 5 mg Aspirin (Aspirin 81 Mg Chew Tab*) 81 mg PO DAILY [facility] Last Admin: 09/17/18 09:01 Dose: 81 mg Carbidopa/Levodopa (Sinemet 25/250 Tab(*)) 1 tab PO QID [facility] Last Admin: 09/17/18 17:58 Dose: 1 tab Carbidopa/Levodopa (Sinemet Cr 50/200(*)) 1 tab.cr PO BEDTIME [facility] Last Admin: 09/16/18 20:20 Dose: 1 tab.cr Cyanocobalamin (Vitamin B12 Tab*) 500 mcg PO DAILY [facility] Last Admin: 09/17/18 09:01 Dose: 500 mcg Docusate Sodium (Colace Cap*) 200 mg PO BID [facility] Last Admin: 09/17/18 08:52 Dose: Not Given Haloperidol Lactate (Haldol Inj Iv/Im*) 2.5 mg IV SLOW PU Q6H PRN PRN Reason: AGITATION Last Admin: 09/15/18 01:36 Dose: 2.5 mg Heparin Sodium (Porcine) (Heparin Vial(*)) 5,000 units SUBCUT Q12H [facility] Last Admin: 09/17/18 08:58 Dose: 5,000 units Piperacillin Sod/Tazobactam (Sod 3.375 gm/ Sodium Chloride) 100 mls @ 25 mls/ hr IVPB 0230,1030,1830 [facility] Last Admin: 09/17/18 17:53 Dose: 25 mls/hr Nitroglycerin (Nitroglycerin Tab 0.4 Mg*) 0.4 mg SL Q5M PRN PRN Reason: ANGINA Ondansetron HCl (Zofran Inj*) 4 mg IV Q6H PRN PRN Reason: NAUSEA Pantoprazole Sodium (Protonix Tab*) 40 mg PO BID [facility] Last Admin: 09/17/18 09:01 Dose: 40 mg Senna (Senokot Tab*) 1 tab PO DAILY PRN PRN Reason: CONSTIPATION Echo: Limited, showed LVEF 55%, aortic and mitral sclerosis, RV apical hypokinesis. EGD: HH, ulceration. Assessment/Plan 83 yo male with PMHx PKSNs, HTN presenting with acute onset n/v SS chest discomfort, diaphoresis with mild ST depression and mild elevation in troponins. CAD risks of HTN, low HDL, calcific plaque seen in the aorta. Based on presentation and reassuring leximyoview, elevated troponins c/w demand ischemia/Type 2 ischemia. I recommend medical management. I don't recommend cardiac catheterization. Treatment of the underlying GI issues will decrease the risk of recurrence. Avoid hypotension, with Parkinson's he is at risk for this. Cardiology will sign off for inpatient care.
[2018-09-17] MEDS: Carbidopa/Levodop CR 50/200(*) TAB.CR PO SCH (20:09)
[2018-09-18] MEDS: ZOSYN 3.375 GM Q8H per EXTENDED INFUSION IVPB SCH ×4 (02:22→11:43)
[2018-09-18 07:05] LABS: ABS Basophils 0 10^3/ul (0-0.2); ABS Eosinophils 0.2 10^3/ul (0-0.6); ABS Lymphocytes 0.6 10^3/ul (1.0-4.8); ABS Monocytes 0.6 10^3/ul (0-0.8); ABS Neutrophils 3.9 10^3/ul (1.5-7.7); ABS Nucleated RBC 0 10^3/ul; Eosinophil % 2.8 %; Hematocrit 42 % (42-52); Hemoglobin 14.3 g/dl (14.0-18.0); Mean Corpuscular HGB Conc 34 g/dl (31-36); Mean Corpuscular Hemoglobin 32 pg (27-31); Mean Corpuscular Volume 94 fL (80-94); Mean Platelet Volume 8.2 fL (7.4-10.4); Nucleated Red Blood Cells % 0.1; Platelet Count 224 10^3/ul (150-450); Red Blood Count 4.49 10^6/ul (4.00-5.40); Red Cell Distribution Width 14 % (10.5-15); White Blood Count 5.4 10^3/ul (3.5-10.8)
[2018-09-18 07:24] LABS: BUN/Creatinine Ratio 15.5 (8-20); Calcium 8.7 mg/dL (8.6-10.3); EGFR African American 57.8 (>60); EGFR Non-African American 47.7 (>60); Phosphorus 2.9 mg/dL (2.5-5.0); Potassium 3.7 mmol/L (3.5-5.0)
[2018-09-18 07:27] LABS: Troponin I 0.04 ng/mL (<0.04)
[2018-09-18] MEDS ORDERED: NS 0.9% 1000 ML** 1,000 ML IV SCH (08:30)
[2018-09-18] MEDS: Carbidopa/Levodop 25/250MG TAB(*) PO SCH ×4 (09:40→20:51)
[2018-09-18] MEDS: Aspirin 81 mg CHEW TAB* 81 MG TAB.CHEW PO SCH (09:40)
[2018-09-18] MEDS: Cyanocobalamin TAB* 500 MCG PO SCH (09:40)
[2018-09-18] MEDS: Pantoprazole TAB * 40 MG TAB PO SCH ×2 (09:41→20:51)
[2018-09-18] MEDS: amLODIPine TAB* 5 MG PO SCH (09:41)
[2018-09-18] MEDS: Heparin VIAL(*) 5000 UNITS/ML VIAL (FIVE THOUSAND) SUBCUT SCH ×2 (09:42→20:51)
[2018-09-18] MEDS: Amantadine CAP* 100 MG PO SCH ×2 (09:42→18:02)
[2018-09-18] MEDS: Docusate CAP* 100 MG PO SCH ×2 (10:55→20:46)
--- NOTE | 2018-09-18 15:52 | PN ---
Subjective Date of Service: 09/18/18 Interval History: Patient seen this morning. He is up to the chair. Much more awake, and energetic. he is able to feed himself today where yesterday he could not lift his arm to feed himself. Conversing well. He knows where he is and alert to his surrounding and conditions. No events overnight. US of leg negative for DVT and V/Q scan low to intermediate for PE Past Medical History: Unchanged from Admission Objective Active Medications: Acetaminophen (Tylenol Tab*) 650 mg PO Q6H PRN PRN Reason: FEVER/PAIN Amantadine HCl (Symmetrel Cap*) 100 mg PO 1700 [facility] Last Admin: 09/17/18 17:53 Dose: 100 mg Amantadine HCl (Symmetrel Cap*) 100 mg PO QAM [facility] Last Admin: 09/18/18 09:42 Dose: 100 mg Amlodipine Besylate (Norvasc Tab*) 5 mg PO DAILY [facility] Last Admin: 09/18/18 09:41 Dose: 5 mg Aspirin (Aspirin 81 Mg Chew Tab*) 81 mg PO DAILY [facility] Last Admin: 09/18/18 09:40 Dose: 81 mg Carbidopa/Levodopa (Sinemet 25/250 Tab(*)) 1 tab PO QID [facility] Last Admin: 09/18/18 13:34 Dose: 1 tab Carbidopa/Levodopa (Sinemet Cr 50/200(*)) 1 tab.cr PO BEDTIME [facility] Last Admin: 09/17/18 20:09 Dose: 1 tab.cr Cyanocobalamin (Vitamin B12 Tab*) 500 mcg PO DAILY [facility] Last Admin: 09/18/18 09:40 Dose: 500 mcg Docusate Sodium (Colace Cap*) 200 mg PO BID [facility] Last Admin: 09/18/18 10:55 Dose: Not Given Haloperidol Lactate (Haldol Inj Iv/Im*) 2.5 mg IV SLOW PU Q6H PRN PRN Reason: AGITATION Last Admin: 09/15/18 01:36 Dose: 2.5 mg Heparin Sodium (Porcine) (Heparin Vial(*)) 5,000 units SUBCUT Q12H [facility] Last Admin: 09/18/18 09:42 Dose: 5,000 units Piperacillin Sod/Tazobactam (Sod 3.375 gm/ Sodium Chloride) 100 mls @ 25 mls/ hr IVPB 0230,1030,1830 [facility] Last Admin: 09/18/18 11:43 Dose: 25 mls/hr Sodium Chloride (Ns 0.9% 1000 Ml) 1,000 mls @ 75 mls/hr IV .per rate [facility] Last Admin: 09/18/18 11:49 Dose: 75 mls/hr Nitroglycerin (Nitroglycerin Tab 0.4 Mg*) 0.4 mg SL Q5M PRN PRN Reason: ANGINA Ondansetron HCl (Zofran Inj*) 4 mg IV Q6H PRN PRN Reason: NAUSEA Pantoprazole Sodium (Protonix Tab*) 40 mg PO BID [facility] Last Admin: 09/18/18 09:41 Dose: 40 mg Senna (Senokot Tab*) 1 tab PO DAILY PRN PRN Reason: CONSTIPATION Vital Signs - 8 hr 09/18/18 09/18/18 08:00 11:30 Temperature 97.2 F Pulse Rate 76 Respiratory 20 20 Rate Blood Pressure 108/65 (mmHg) O2 Sat by Pulse 95 Oximetry Oxygen Devices in Use Now: None Appearance: Awake, in chair. pleasant. fully awake and alert to his environement and surrouding. Eyes: No Scleral Icterus Ears/Nose/Mouth/Throat: NL Teeth, Lips, Gums, - - Mask facial feature Neck: NL Appearance and Movements; NL JVP, Trachea Midline Respiratory: Symmetrical Chest Expansion and Respiratory Effort, Clear to Auscultation Cardiovascular: NL Sounds; No Murmurs; No JVD, RRR Abdominal: NL Sounds; No Tenderness; No Distention Neurological: Alert and Oriented x 3, - - increase tonicity and cogwheel ridigdity, Result Diagrams: 09/18/18 06:50 09/18/18 06:50 Microbiology and Other Data: Microbiology 09/11/18 13:45 Stool Occult Blood (CARLITOS) - Final Stool Assess/Plan/Problems-Billing Assessment: 83 y/o male presented with abdominal pain and fever, UGI bleed - Patient Problems (1) Abdominal pain Current Visit: Yes Status: Acute Code(s): R10.9 - UNSPECIFIED ABDOMINAL PAIN SNOMED Code(s): 62474725 Comment: - Presented to ER with abdominal pain with nausea and vomit. CT scan abdomen pelvis on admission was unrevealing. He was started on Zoysn on admission as empirical therapy. He remain on Zosyn as of today Day # 7. At this time I don't see any indication for continuation of his antibiotics. He did have fever only on admission and he has been afebrile since. This could have been gastroenteritis v.s his PUD as per EGD. I will D/C zosyn today as he already been on 7 days empiric therapy. (2) Coffee ground emesis Current Visit: Yes Status: Acute Code(s): K92.0 - HEMATEMESIS SNOMED Code( s): 87891676 Comment: - Reported subjective by patient on admission. There was no active bleed reported during his hospitalizations. - Patient underwent EGD on 09/14/18 and revealed mild proximal gastric irritation in the setting of small duodenal ulcers, although PUD is deemed low risk for rebleeds by Dr. Zhou - Continue Pantoprazole PO BID - Avoid NSAID's (3) Change in mental status Current Visit: Yes Status: Acute Code(s): R41.82 - ALTERED MENTAL STATUS, UNSPECIFIED SNOMED Code(s): 318775182 Comment: - Resolved - This most likely could have been due to reaction to sedation during EGD due to hx of Parkinsons? Will avoid [employer] altering drug. I will D/C prn Haldol - CT head (09/15/18): NAD (4) Elevated troponin Current Visit: Yes Status: Acute Code(s): R74.8 - ABNORMAL LEVELS OF OTHER SERUM ENZYMES SNOMED Code(s): 702136684 Comment: - I Appreciate Dr. Anuja jack. I also discussed with his daughter and I explained that given PUD and his normal Nuclear stress test with normal EF 70% and no reversible ischemia, It is more beneficial to defer left heart catherization until his PUD healed and re-evaluated by GI before proceeding with LHC that may require terminal block assembler antiplatelet therapy. -2Decho: Wall motion abn of apex w/ preserved EF = 55%, seems to be consistent w / above - Continue ASA to 81 mg/day; Continue Atorvastatin. His LDL at goal; Atorvastatin decreased to 40 mg (5) HTN (hypertension) Current Visit: Yes Status: Acute Code(s): I10 - ESSENTIAL (PRIMARY) HYPERTENSION SNOMED Code(s): 93450136 Comment: - Continue Amlodipine 5 mg daily (6) Parkinson disease Current Visit: Yes Status: Acute Code(s): G20 - PARKINSON'S DISEASE SNOMED Code(s): 09352009 Comment: - Continue amantandine - Continue Carbidopa/Levodopa (7) Prostate cancer Current Visit: Yes Status: Acute Code(s): C61 - MALIGNANT NEOPLASM OF PROSTATE SNOMED Code(s): 799880957 Comment: - History of prostate Cancer (8) DVT prophylaxis Current Visit: Yes Status: Acute Code(s): ODJ6186 - SNOMED Code(s): 956990735 Comment: -Continue Heparin SQ to q12H Status and Disposition: -V/Q scan 48 hrs post stress test; however, will defer w/colleague given this is low in my differentials; please see above disucssion -As above
[2018-09-18] MEDS: Carbidopa/Levodop CR 50/200(*) TAB.CR PO SCH (20:51)
[2018-09-19] MEDS: Aspirin 81 mg CHEW TAB* 81 MG TAB.CHEW PO SCH (09:58)
[2018-09-19] MEDS: Amantadine CAP* 100 MG PO SCH (10:00)
[2018-09-19] MEDS: Cyanocobalamin TAB* 500 MCG PO SCH (10:00)
[2018-09-19] MEDS: Carbidopa/Levodop 25/250MG TAB(*) PO SCH ×2 (10:00→13:19)
[2018-09-19] MEDS: Heparin VIAL(*) 5000 UNITS/ML VIAL (FIVE THOUSAND) SUBCUT SCH (10:00)
[2018-09-19] MEDS: Docusate CAP* 100 MG PO SCH (10:00)
[2018-09-19] MEDS: amLODIPine TAB* 5 MG PO SCH (10:00)
[2018-09-19] MEDS: Pantoprazole TAB * 40 MG TAB PO SCH (10:00)
[2018-09-19 13:39] VITALS: BP 123/64
--- NOTE | 2018-09-19 15:36 | DS ---
CC: Dr. Licea, Cardiology; Dr. Zhou, GI; Dr. Chaitanya Desai DISCHARGE SUMMARY: DATE OF ADMISSION: 09/11/18 DATE OF DISCHARGE: 09/18/18 PRIMARY CARE PROVIDER: Dr. Chaitanya Desai. FINAL DISCHARGE DIAGNOSES: 1. Abdominal pain secondary to acute gastroenteritis and peptic ulcer disease. 2. Gastroenteritis, acute. 3. Peptic ulcer disease. 4. Elevated troponin secondary to demand-mediated ischemia, type 2. 5. Hypertension. 6. Parkinson's disease. HOSPITAL COURSE: The patient presented to [facility] on 09/11/18 for increased abdominal pain, nausea and vomiting associated with coffee-ground emesis, unwitnessed at home by the patient's history. With a known history of Parkinson's disease, he was admitted to the medical service. CT scan, which was performed, was fairly unremarkable from GI point of view. Nonetheless, the patient was admitted, was placed on IV fluids and IV Zosyn intravenously. Given the history of coffee- ground emesis, GI consultation was obtained and he underwent EGD, which did reveal evidence of peptic ulcer disease and he recommended to start on Protonix 40 b.i.d. During the hospital course as well, the patient did have a serial cardiac enzyme and quite elevated at 0.3 and trended down to 0.04. Cardiology consultation was obtained with Dr. Licea. Given his history of peptic ulcer disease, it was not recommended to perform cardiac catheterization at this time due to the risk of anticoagulation and bleeding. However, the patient developed altered mental status post EGD, which probably was contributed to anesthesia and the deprivation of his Parkinson's meds. This has resolved shortly after observation within 24 to 48 hours after resumption of his parkinsonism medication. Given his elevated cardiac enzyme, we did perform nuclear stress test, which came back negative for reversible ischemia, normal wall motion. An echocardiogram which was also performed revealed normal ejection fraction 50% to 55%. A nuclear scan was followed due to positive D- dimer. It was low to intermediate probability of pulmonary embolism. He clinically continued to improve with the exception that on when he was seen by me, he had severe myopathy and severe weakness of his musculature. At that time, he was placed on high dose of statin secondary to his type 2 demand-mediated ischemia. Given his generalized muscle weakness, I did perform a CPK and it was within normal limits of 62 and his AST was up to 78 , ALT up to 35 with a baseline number of 5. Therefore, I elected to hold the statin and reevaluate him in the morning and his symptoms completely subsided, improved by a.m. within 24 hours of his statin. Hence I elected to keep the statin on hold and and risk can be decided as an outpatient to resume it giving the benefit and risk probably at lower dose. At this time, the patient will be released without simvastatin due to the muscle weakness that was witnessed while he is on it. The patient was evaluated this morning. I met with the family and I deemed him stable for discharge. PHYSICAL EXAMINATION: Vitals: Temperature 97.4, pulse 69, respiratory rate 18 , saturation 94%, blood pressure 138/69. General: He is awake, alert, oriented , pleasant. He does have the Parkinson's facial features and cogwheel rigidity. Lungs: Clear to auscultation bilaterally. Cardiovascular: S1, S2. Regular rate and rhythm. Abdomen: Positive bowel sounds. Soft, nontender, nondistended. Extremities: No pedal edema. He does have targeted tremor with cogwheel rigidity and facial mask feature. INPATIENT DIAGNOSTIC STUDIES: Microbiology: None. Chemistry: He was slightly leukopenic on admission, improved to 5.4, which deemed due to his gastroenteritis, status post Zosyn for 7 days, which was discontinued. His D-dimer was positive up to 315. This was followed with a V/Q scan, which was negative and venous Doppler of the lower extremity bilaterally with no evidence of DVT. Nuclear medicine reveals no reversible ischemia. Brain CT, 09/15/18, shows no evidence of intracranial abnormality. Abdominal CT did not reveal any acute pathology. He has some diverticulosis, incidental cholelithiasis. INPATIENT CONSULTATIONS: 1. Dr. Licea from Cardiology. 2. GI, Dr. Damir Zhou. INPATIENT PROCEDURES: EGD, nuclear medicine. DISCHARGE MEDICATIONS: The patient will be released on: 1. Amlodipine 5 mg daily. 2. B12 500 mcg daily. 3. Amantadine 100 mg b.i.d. 4. Aspirin 81 mg given his demand-mediated type 2 ischemia. 5. Protonix 40 mg b.i.d. for 30 days. 6. Sinemet 1 tab 4 times a day of the . OUTPATIENT REFERRAL: 1. Home visiting nurse. 2. Physical therapy. FOLLOWUP: 1. Followup appointment with PCP 1 to 2 weeks. 2. Follow up with Cardiology, Dr. Licea, in 1 to 2 weeks. 3. Follow up with GI, Dr. Zhou, within 1 month for further recommendation on his PPI and repeat endoscopy as an outpatient electively. Total time spent on discharge 45 mins [id number]/[facility] #: [id number] MARIA ANTONIA
== END 2018-09-19 13:35 | disposition home health service (06) | DRG 383 ==
LOC: ED 12:30 → MED 17:30
PROVIDERS: ADMIT Internal Medicine; ATTEND Internal Medicine
PROC: 0DB68ZX Excision of Stomach, Via Natural or Artificial Opening Endoscopic, Diagnostic (ICD-10-PCS; 2018-09-14)
PROC: 4A02XM4 Measurement of Cardiac Total Activity, External Approach (ICD-10-PCS; principal; 2018-09-16)
DX: K27.9 Peptic ulcer, site unspecified, unspecified as acute or chronic, without hemorrhage or perforation (principal); I21.A1 Myocardial infarction type 2; K52.9 Noninfective gastroenteritis and colitis, unspecified; G20 Parkinson's disease; K57.90 Diverticulosis of intestine, part unspecified, without perforation or abscess without bleeding; D64.9 Anemia, unspecified; R41.82 Altered mental status, unspecified; G72.9 Myopathy, unspecified; T41.45XA Adverse effect of unspecified anesthetic, initial encounter; Y92.239 Unspecified place in hospital as the place of occurrence of the external cause; T46.6X5A Adverse effect of antihyperlipidemic and antiarteriosclerotic drugs, initial encounter; D72.819 Decreased white blood cell count, unspecified; K44.9 Diaphragmatic hernia without obstruction or gangrene; K80.20 Calculus of gallbladder without cholecystitis without obstruction; I10 Essential (primary) hypertension; K59.00 Constipation, unspecified; Z66 Do not resuscitate; Z85.46 Personal history of malignant neoplasm of prostate; Z81.1 Family history of alcohol abuse and dependence; Z82.0 Family history of epilepsy and other diseases of the nervous system; Z83.79 Family history of other diseases of the digestive system; Z88.8 Allergy status to other drugs, medicaments and biological substances; Z79.82 Long term (current) use of aspirin
CPT/HCPCS: 36415; 70450; 71045; 71046; 74176; 78452; 78582; 80048; 80053; 80061; 81003; 82272; 82330; 82550; 82553; 82728; 83540; 83550; 83605; 83735; 84100; 84484; 85025; 85027; 85060; 85379; 85610; 85730; 86140; 87077; 93005; 93017; 93308; 93970; 99156; 99157; 99285; A9270-GY; A9502; A9540; A9558; G8978-GP-CK; G8979-GP-CI; J0280; J0610; J1630; J1644; J2060; J2250; J2405; J2543; J2785; J3010; J3475

== ENCOUNTER 2019-06-23 13:43 | Emergency (ER) | payer MEDICARE, BC ==
--- NOTE | 2019-06-23 14:17 | UC ---
Head Injury HPI - HPI Summary HPI Summary: head [facility] x 2 hrs [facility] at the [facility] 84 y/o male with hx of Parkinson's disease s/p fall about 2 hrs ago and his his head, fall was witness by his daughter he lost his balance and fell on his left side , he went on his knees first then hit the floor on his left side of head / corner of his left eye pt. was just discharged from [facility] for constipation , he was in the hospital for 2 days denies any chest pain, no palpitation , no sob , hx of Parkinsons with chronic unsteady gait - History Of Current Complaint Stated Complaint: S/P FELL, L SIDE PAIN/HEAD INJ/LAC Time Seen by Provider: 06/23/19 13:45 Hx Obtained From: Patient, Family/Wood Grinder Onset/Duration: Sudden Onset, Lasting Hours - 2 Severity Currently: Moderate Severity Initially: Moderate Character: Dull Aggravating Factor(s): Nothing Alleviating Factor(s): Nothing Associated Signs And Symptoms: Positive: Other - hx of parkinsons disease. Negative: LOC (Time In Secs./Mins/Hrs), LOC Duration Unknown, Confusion, Memory Loss, Seizure, Epistaxis, Dental Malocclusion, Neck Pain, Nausea, Vomiting - Allergies/Home Medications Allergies/Adverse Reactions: Allergies Allergy/AdvReac Type Severity Reaction Status Date / Time brompheniramine Allergy See Comment Verified 06/23/19 14:03 [From Drixoral] dexbrompheniramine Allergy See Comment Verified 06/23/19 14:03 [From Drixoral] midazolam [From Versed] Allergy Altered Verified 06/23/19 14:03 Mental Status pseudoephedrine Allergy See Comment Verified 06/23/19 14:03 [From Drixoral] Home Medications: Home Medications Carbidopa/Levodop CR 50/200(*) [Sinemet CR 50/200(*)] 2 tab PO DAILY 06/23/19 [ History Confirmed 06/23/19] Carbidopa/Levodop CR 50/200(*) [Sinemet CR 50/200(*)] 2 tab PO DAILY WITH MEAL 06/23/19 [History Confirmed 06/23/19] Carbidopa/Levodop CR 50/200(*) [Sinemet CR 50/200(*)] 3 tab PO DAILY 06/23/19 [ History Confirmed 06/23/19] Docusate Sodium [Colace] 100 mg PO BID 06/23/19 [History Confirmed 06/23/19] Fexofenadine HCl 180 mg PO DAILY 06/23/19 [History Confirmed 06/23/19] Pantoprazole TAB * [Protonix TAB*] 40 mg PO DAILY 06/23/19 [History Confirmed ] PMH/Surg Hx/FS Hx/Imm Hx - Additional Past Medical History Additional PMH: hx of Parkinson's disease Cardiovascular History: Hypertension - Surgical History Surgical History: Unable to Obtain/Confirm - Family History Known Family History: Positive: Non-Contributory Negative: Diabetes - Social History Alcohol Use: None Substance Use Type: None Smoking Status (MU): Never Smoked Tobacco - Immunization History Most Recent Influenza Vaccination: fall 2017 Most Recent Pneumonia Vaccination: "within the last 5 years" Review of Systems All Other Systems Reviewed And Are Negative: Yes Constitutional: Positive: Negative Skin: Positive: Negative Eyes: Positive: Negative ENT: Positive: Negative Respiratory: Positive: Negative Cardiovascular: Positive: Negative Gastrointestinal: Positive: Negative Genitourinary: Positive: Negative Motor: Positive: Weakness, Other - hx of Parkinson's Neurovascular: Positive: Negative Neurological: Negative: Headache Is Patient Immunocompromised?: No Physical Exam Triage Information Reviewed: Yes Appearance: No Pain Distress, Well-Nourished, Other: - resting tremor Vital Signs Reviewed: Yes Eyes: Positive: Conjunctiva Clear. Negative: Conjunctiva Inflamed, Discharge ENT Exam: Normal ENT: Positive: Normal ENT inspection, Hearing grossly normal, Pharynx normal Neck exam: Normal Neck: Positive: Supple, Nontender, No Lymphadenopathy Respiratory: Positive: Chest non-tender, Lungs clear, Normal breath sounds Cardiovascular: Positive: RRR, No Murmur, Pulses Normal Abdominal Exam: Normal Abdomen Description: Positive: Nontender, Soft. Negative: CVA Tenderness (R), CVA Tenderness (L), Distended, Guarding Bowel Sounds: Positive: Present Musculoskeletal: Positive: Strength Limited @ - diffuse, ROM Limited @ - parkinson's Neurological: Positive: Abnormal Muscle Tone Skin Exam: Normal UC Physical Exam Vital Signs On Initial Exam: Initial Vitals Temp Pulse Resp BP Pulse Ox 98.5 F 79 24 124/94 94 06/23/19 14:03 06/23/19 14:03 06/23/19 14:03 06/23/19 14:03 06/23/19 14:03 - Neurological Exam Neurological: Sensory/Motor Intact, Alert, Oriented to Person Place, Time, CN Intact II-III, Dysarthric Aphasia, Facial Symmetry, Speech Normal Head Injury Course/Dx - Differential Dx/Diagnosis Provider Diagnosis: Contusion of head, Unstable balance Discharge ED - Sign-Out/Discharge Documenting (check all that apply): Patient Departure All imaging exams completed and their final reports reviewed: Yes - Discharge Plan Condition: Good Disposition: HOME Patient Education Materials: Fall Prevention for Older Adults (ED), Head Injury (ED), Weakness (ED) Referrals: Chaitanya Desai MD [Primary Care Provider] - 5 Days - Billing Disposition and Condition Condition: GOOD Disposition: Home
[2019-06-23 14:18] VITALS: BP 124/94
== END 2019-06-23 14:42 | disposition home or self-care (01) ==
LOC: UCCORT 13:43
DX: S00.93XA Contusion of unspecified part of head, initial encounter (principal); I10 Essential (primary) hypertension; G20 Parkinson's disease; R26.81 Unsteadiness on feet; Z88.8 Allergy status to other drugs, medicaments and biological substances; Z79.899 Other long term (current) drug therapy; W18.30XA Fall on same level, unspecified, initial encounter; W22.8XXA Striking against or struck by other objects, initial encounter; Y92.9 Unspecified place or not applicable
CPT/HCPCS: 99212; G0463